=== PATIENT | female | born 1985 | race Caucasian/White ===

== ENCOUNTER 2019-10-14 10:33 | Emergency (ER) | payer OTHER, SELFPAY ==
[2019-10-14 10:45] VITALS: BP 124/80; PULSE 94; RESP 20; TEMP 36.7; O2SAT 98
--- NOTE | 2019-10-14 11:27 | ED.GENADULT ---
HPI - General Adult General Chief complaint: Upper Respiratory Infection Stated complaint: flu swab Time Seen by Provider: 10/14/19 11:21 Source: patient and RN notes reviewed Mode of arrival: ambulatory Limitations: no limitations History of Present Illness HPI narrative: Patient presents today with a fever up to 101.4, mild cough, body aches, and headache since yesterday. Reports all 3 of her children have had influenza in the past couple of weeks. She has been taking DayQuil, Mucinex, and Tylenol with some relief. MD complaint: Fever Related Data Home Medications Medication Instructions Recorded Confirmed divalproex [Depakote] 2,000 mg PO DAILY 10/14/19 10/14/19 escitalopram oxalate [Lexapro] 10 mg PO DAILY 10/14/19 10/14/19 etonogestrel [Nexplanon] 1 implant SUBDERMAL ONCE 10/14/19 10/14/19 lorazepam 1 mg PO DAILY 10/14/19 10/14/19 Allergies Allergy/AdvReac Type Severity Reaction Status Date / Time Sulfa (Sulfonamide Allergy Mild HIVES Verified 10/14/19 11:12 Antibiotics) Review of Systems Review of Systems: Narrative: CONSTITUTIONAL: Denies chills, or sweats.+Body aches, fever EYES: Denies visual changes, redness, or discharge. ENT: Denies rhinorrhea, congestion, sore throat, or otalgia. CARDIOVASCULAR: Denies chest pain, palpitations, or edema. RESPIRATORY: Denies dyspnea.+Cough GASTROINTESTINAL: Denies abdominal pain, nausea, vomiting, or diarrhea. GENITOURINARY: Denies dysuria or hematuria. SKIN: Denies rash, itching, or wounds. MUSCULOSKELETAL: Denies back pain, joint pain, or myalgia. NEUROLOGIC: Denies numbness, tingling, or weakness.+Headache PSYCH: Denies depression or anxiety. PMFSH Past Medical History Medical History (Updated 10/14/19 @ 11:31 by Aracelis Jane, [employer], ) ADHD Anxiety Borderline personality disorder Depression Comments At time of signature, I have reviewed and agree with nursing past medical, surgical, social and family history unless otherwise noted. Please see nursing chart for further information. There is no relevant family history pertinent to the presenting complaint Exam Narrative: Exam Narrative: GENERAL: Mildly ill-appearing, well-nourished, and in no acute distress. HEAD: Normocephalic, atraumatic. EYES: EOMI. No redness or drainage. Conjunctivae normal. ENT: Mucous membranes pink and moist. Nares clear. No rhinorrhea. TMs normal bilaterally. Throat normal. Uvula midline. NECK: Normal AROM. Supple. No lymphadenopathy. CHEST: No respiratory distress. Clear to auscultation. HEART: Regular rate and rhythm. No murmur appreciated. Normal peripheral pulses. EXTREMITIES: Normal range of motion. No edema. SKIN: Warm, dry, no rash. NEURO: No focal deficits. Alert and oriented x3. Gait steady. PSYCH: Normal affect. No signs of depression or anxiety. Course Vital Signs Vital signs: Vital Signs Temperature 98.0 F 10/14/19 10:45 Pulse Rate 94 10/14/19 10:45 Respiratory Rate 10/14/19 10:45 Blood Pressure 124/80 10/14/19 10:45 Pulse Oximetry 98 10/14/19 10:45 Temperature 98.0 F 10/14/19 10:45 Pulse Rate 94 10/14/19 10:45 Respiratory Rate 10/14/19 10:45 Blood Pressure 124/80 10/14/19 10:45 Pulse Oximetry 98 10/14/19 10:45 Reviewed. Pt has been instructed to follow up with her PCP regarding her elevated blood pressure today. Medical Decision Making Differential Diagnosis Differential Diagnosis: Influenza, URI, viral syndrome Vital Signs Vital Signs: Vital Signs Temperature 98.0 F 10/14/19 10:45 Pulse Rate 94 10/14/19 10:45 Respiratory Rate 10/14/19 10:45 Blood Pressure 124/80 10/14/19 10:45 Pulse Oximetry 98 10/14/19 10:45 Temperature 98.0 F 10/14/19 10:45 Pulse Rate 94 10/14/19 10:45 Respiratory Rate 10/14/19 10:45 Blood Pressure 124/80 10/14/19 10:45 Pulse Oximetry 98 10/14/19 10:45 Lab Data Lab results reviewed: Yes I reviewed the patient's lab resul
== END 2019-10-14 11:32 | disposition home or self-care (01) ==
PROVIDERS: Emergency Provider Nurse Practitioner; PCP Physician Assistant
DX: B34.9 Viral infection, unspecified (principal); F41.9 Anxiety disorder, unspecified; F32.9 Major depressive disorder, single episode, unspecified
CPT/HCPCS: 87804; 99212; G0463

== ENCOUNTER 2021-03-27 16:08 | Emergency (ER) | payer OTHER, SELFPAY ==
[2021-03-27 16:18] VITALS: BP 144/83; PULSE 98; RESP 16; TEMP 36.4; O2SAT 99
--- NOTE | 2021-03-27 16:19 | ED.LOWEXIN ---
HPI - Extremity Injury (Lower) General Chief Complaint: Extremity Injury, Lower Stated Complaint: Pain and can't walk on left Leg Time Seen by Provider: 03/27/21 16:30 Source: patient and RN notes reviewed Mode of arrival: ambulatory Limitations: no limitations History of Present Illness HPI Narrative: 35-year-old female presents with concern for left calf pain that started suddenly after she was pushing her car onto a sloane to be towed. She denies any direct trauma or blow to the leg. She denies a fall. She reports some pain at rest, pain with foot flexion and weightbearing. She denies redness, swelling, open skin. Denies intervention MD complaint: leg injury Related Data Home Medications Medication Instructions Recorded Confirmed etonogestrel [Nexplanon] 1 implant SUBDERMAL ONCE 10/14/19 10/14/19 lorazepam 0.5 mg PO DAILY 10/14/19 10/14/19 cariprazine [Vraylar] 1.5 mg PO DAILY 03/27/21 03/27/21 oxcarbazepine 300 mg PO BID 03/27/21 03/27/21 venlafaxine 75 mg PO DAILY 03/27/21 03/27/21 Allergies Allergy/AdvReac Type Severity Reaction Status Date / Time Sulfa (Sulfonamide Allergy Mild HIVES Verified 03/27/21 16:28 Antibiotics) Review of Systems Review of Systems: CONSTITUTIONAL: Denies malaise, chills, sweats, or fever. CARDIOVASCULAR: Denies chest pain, palpitations, or edema. RESPIRATORY: Denies cough or dyspnea. SKIN: Denies abrasions, lacerations MUSCULOSKELETAL: Reports left calf pain with weightbearing and flexion NEUROLOGIC: Denies numbness, weakness All systems reviewed & are unremarkable except as noted in HPI and below PMFSH Past Medical History Medical History (Updated 03/27/21 @ 16:41 by Abiola Meraz NP) ADHD Anxiety Borderline personality disorder Depression Comments At time of signature, agree with nursing past medical, surgical, social and family history. There is no relevant family history pertinent to the presenting complaint Exam Narrative: GENERAL: Well-appearing, well-nourished, and in no acute distress. HEAD: Normocephalic, atraumatic. EYES: PERRLA, conjunctivae clear NECK: Supple. CHEST: Speaks in full sentences. No respiratory distress. HEART: Regular rate and rhythm. Normal and equal peripheral pulses. EXTREMITIES: Left lower leg has normal strength and sensation, normal range of motion. No edema erythema, or ecchymosis. Normal sensation with sensitivity to light touch and pain. Mild tenderness at the lateral posterior calf tenderness. No open wounds, no skin tenting, no devitalized tissue or atrophy, no trophic changes, no obvious deformity, alignment normal, nearby joints and structures intact. Distal pulses palpable and equal bilaterally, skin warm, dry, pink. Capillary refill less than 3 seconds. SKIN: Warm, dry, no rash. NEURO: Alert and oriented x3. PSYCH: Normal mood and affect Course Course Emergency Course: Patient is aware of diagnosis, understands and agrees to treatment plan. Anticipatory guidance given. Patient agrees to follow-up as directed and is aware of reasons to seek care at the emergency department. Portions of this record may have been created with voice recognition software Vital Signs Vital signs: Vital Signs Temperature 97.6 F 03/27/21 16:18 Pulse Rate 98 03/27/21 16:18 Respiratory Rate 16 03/27/21 16:18 Blood Pressure 144/83 H 03/27/21 16:18 Pulse Oximetry 99 03/27/21 16:18 Temperature 97.6 F 03/27/21 16:18 Pulse Rate 98 03/27/21 16:18 Respiratory Rate 16 03/27/21 16:18 Blood Pressure 144/83 H 03/27/21 16:18 Pulse Oximetry 99 03/27/21 16:18 Reviewed. MDM - Extremity Injury (Lower) MDM Narrative Medical decision making narrative: Patients injury and pain is consistent with musculoskeletal etiology. No signs of neurological or vascular compromise on exam. Compartments and tissues are soft without signs of compartment syndrome. Pain is felt appropriate for further evaluation on an outpatient basis. Cr
== END 2021-03-27 16:43 | disposition home or self-care (01) ==
PROVIDERS: Emergency Provider Nurse Practitioner; PCP Physician Assistant
DX: S86.112A Strain of other muscle(s) and tendon(s) of posterior muscle group at lower leg level, left leg, initial encounter (principal); X50.0XXA Overexertion from strenuous movement or load, initial encounter; F41.9 Anxiety disorder, unspecified; F32.9 Major depressive disorder, single episode, unspecified
CPT/HCPCS: 99212; G0463

== ENCOUNTER → 2021-03-27 20:57 | Emergency (ER) | payer OTHER, SELFPAY ==
[2021-03-27 21:09] VITALS: BP 118/81; PULSE 89; RESP 17; TEMP 36.8; O2SAT 100
--- NOTE | 2021-03-27 21:17 | PC.NURSE ---
Patient informed that no walking boots are available here and she stated she will leave. Patient left ED at 2114, stating she will just go home.
== END | disposition left against medical advice (07) ==
PROVIDERS: PCP Physician Assistant
DX: M79.662 Pain in left lower leg (principal)
CPT/HCPCS: 99199

== ENCOUNTER 2021-07-05 16:19 | Emergency (ER) | payer OTHER, SELFPAY ==
--- NOTE | ~2021-07-05 | XR_ITS ---
EXAMINATION: XR soft tissue neck EXAM DATE: 07/05/2021 17:52 INDICATION: Throat pressure, hard to swallow, raspy voice, n/v x 1 week. TECHNIQUE: Soft tissue neck frontal, lateral projections. There is no prior study for comparison. FINDINGS: On the frontal projection, at the glottis, vocal cords airway is narrowed which could be ph asic. Some edema of the vocal cords, glottis not excludable. Epiglottis and aryepiglottic folds are n ormal. There are no soft tissue abnormalities identified. Vertebral body and disc heights are well- maintained. The vertebral bodies are aligned. IMPRESSION: Glottic narrowing on frontal image which can be phasic, or indicative of vocal cord edema. Normal epi glottis. Reviewed, dictated and finalized at location A. ONOMY INSTRUCTOR IMPRESSION: Glottic narrowing on frontal image which can be phasic, or indicative of vocal cord edema. Normal epiglottis.
--- NOTE | ~2021-07-05 | CT_ITS ---
EXAMINATION: CT soft tissue neck w con EXAM DATE: 07/05/2021 19:12 INDICATION: neck pressure, vocal cord narrowing . TECHNIQUE: Spiral CT of the neck was performed following intravenous injection of 75 mL Omnipaque 350 . Axial, coronal and sagittal images were reviewed. The dose-length product (DLP) for this examinat ion was 588.37 mGy-cm. The exposure was tailored according to patient size (auto mA exposure control ), and iterative reconstruction (ASIR) was used as additional dose reduction technique. There is no prior study for comparison. FINDINGS: The thyroid gland is unremarkable. The submandibular and parotid glands are symmetric. There is a right IJ lymph node measuring 1.0 x 1.1 cm, mildly enlarged, likely reactive. The superio r mediastinum is unremarkable. The airway is unremarkable. Parapharyngeal and pre-glottic fat rishabh lance are preserved. The opacified vasculature is patent. The orbits are unremarkable. Mild right maxillary sinus mucoperiosteal thickening. Lung apices are clear. There is cervical spondylosis. IMPRESSION: 1. Normal-appearing airway, fat planes. 2. Mildly enlarged right level 2 lymph node, reactive. 3. Mild right maxillary sinus mucoperiosteal thickening. Reviewed, dictated and finalized at location A. [employer]
[2021-07-05 16:58] VITALS: BP 104/74; PULSE 100; RESP 16; TEMP 36.3; O2SAT 100
--- NOTE | 2021-07-05 17:26 | ED.URI ---
HPI - URI/Sore Throat General Chief Complaint: Upper Respiratory Infection Stated Complaint: throat pressure Time Seen by Provider: 07/05/21 17:24 Source: patient Mode of arrival: ambulatory Limitations: no limitations History of Present Illness HPI Narrative: Patient is a 35-year-old female presenting for evaluation of throat pressure. Patient states that she has had intermittently sore throat, congestion, rhinorrhea. Patient had a negative Covid test ordered by her primary care physician that resulted today. She denies any significant fever or chills. No nausea or vomiting. She reports vocal hoarseness. She denies any ear pain or discharge. No neck pain, cough or shortness of breath. Patient states that she has a daughter currently hospitalized at [facility], was concerned that initially her symptoms of sort thoroughness were secondary to anxiety. Symptoms have persisted, today the patient's primary care provider urged her to come to the emergency department for evaluation. No difficulty with neck movement. She does report a swollen lymph node on the left side of her neck which has been there since she was age 17. She denies history of cancer. Patient does report intermittent dizziness with standing over the past week as well. No current dizziness in room. No focal weakness or numbness. No recent fall, injury or syncopal events. Patient has been ambulatory without difficulty. No noticeable changes in her gait. Related Data Home Medications Medication Instructions Recorded Confirmed etonogestrel [Nexplanon] 1 implant SUBDERMAL ONCE 10/14/19 10/14/19 lorazepam 0.5 mg PO DAILY 10/14/19 10/14/19 cariprazine [Vraylar] 1.5 mg PO DAILY 03/27/21 03/27/21 oxcarbazepine 300 mg PO BID 03/27/21 03/27/21 venlafaxine 75 mg PO DAILY 03/27/21 03/27/21 Allergies Allergy/AdvReac Type Severity Reaction Status Date / Time Sulfa (Sulfonamide Allergy Mild HIVES Verified 07/05/21 17:21 Antibiotics) Review of Systems Review of Systems: CONSTITUTIONAL: Denies current fever, chills, or sweats. EYES: Denies visual changes, redness, or discharge. ENT: Reports rhinorrhea, congestion, history of sore throat, denies otalgia CARDIOVASCULAR: Denies chest pain, palpitations, or edema. RESPIRATORY: Denies cough or dyspnea. GASTROINTESTINAL: Denies abdominal pain, nausea, vomiting, or diarrhea. GENITOURINARY: Denies dysuria or hematuria. SKIN: Denies rash or itching. MUSCULOSKELETAL: Denies back pain, joint pain, or myalgia. NEUROLOGIC: Denies headache, numbness, or weakness. Reports intermittent dizziness. Denies current dizziness. No syncopal events. No changes in gait. [facility] Past Medical History Medical History ADHD Anxiety Borderline personality disorder Depression Social History Social History (Updated 07/05/21 @ 17:45 by Jana Waddell MD) Smoking status: Current every day smoker Tobacco type: cigarettes Substance use: current Substance use type: marijuana Living arrangements: with family Gender identity (if verbalized by the patient): Female Exam Narrative: GENERAL: Awake, alert, conversant HEAD: Normocephalic, atraumatic. EYES: PERRLA and EOMI. ENT: Nares clear, no rhinorrhea or epistaxis. Mucous membranes moist. No lymphadenopathy. Uvula is midline. No trismus. Mild tonsillar erythema, edema bilaterally. No exudate. NECK: Supple. CHEST: No respiratory distress, breathing even and non labored, no wheezing, no crackles HEART: Regular rate, sinus rhythm ABDOMEN:Non distended, non tender EXTREMITIES: Normal range of motion. No edema. SKIN: Warm, dry, no rash. NEURO:No focal deficits. Alert and oriented x3 Course Vital Signs Vital signs: Vital Signs Temperature 36.3 C L 07/05/21 16:58 Pulse Rate 100 07/05/21 16:58 Respiratory Rate 16 07/05/21 16:58 Blood Pressure 104/74 07/05/21 16:58 Pulse Oximetry 100 07/05/21
[2021-07-05 18:11] LABS: Basophils Percent Auto 0.3 % (0.2-1.2); Eosinophils Absolute Auto 0.2 K/mm3 (0-0.3); Eosinophils Percent Auto 1.8 % (0-4.4); Hematocrit 41.9 % (37.0-47.0); Hemoglobin 13.8 g/dL (12.0-15.0); Immature Granulocyte Absolute 0.07 K/mm3 (0.00-0.031); Immature Granulocyte Percent A 0.5 % (0-0.5); Lymphocytes Absolute Auto 2.86 K/mm3 (0.9-3.2); Lymphocytes Percent Auto 21.3 % (18.3-44.2); Mean Corpuscular HGB Conc 32.9 g/dl (32-36); Mean Corpuscular Hemoglobin 30.3 pg (26-34); Mean Corpuscular Volume 92.1 fl (80-100); Monocytes Absolute Auto 0.8 K/mm3 (0.1-0.6); Monocytes Percent Auto 5.9 % (2.6-8.5); Neutrophils Absolute Auto 9.4 K/mm3 (1.3-6.7); Neutrophils Percent Auto 70.2 % (45.5-73.1); Platelet Count Result 333 k/mm3 (150-375); Red Blood Count 4.55 M/mm3 (4.2-5.4); Red Cell Distribution Width 13.4 % (11.5-14.5); White Blood Count 13.4 K/mm3 (4.5-10.0)
[2021-07-05 18:21] LABS: Anion Gap 7 mmol/L (8-16); Blood Urea Nitrogen 20 mg/dL (7-17); Carbon Dioxide 27 mmol/L (22-30); Chloride 105 mmol/L (98-107); Estimated CRCL calculation 133 ml/min; Estimated Glomerular Filt Rate > 60; Glucose 107 mg/dL (65-110); Potassium 4.1 mmol/L (3.4-5.0); Sodium 139 mmol/L (137-145)
[2021-07-05] MEDS: KETOROLAC (*BKC) 60 MG/2 ML VIAL 30 MG IM (18:21)
== END 2021-07-05 19:42 | disposition home or self-care (01) ==
PROVIDERS: Emergency Provider Emergency Medicine; PCP Physician Assistant
DX: B34.9 Viral infection, unspecified (principal); F17.200 Nicotine dependence, unspecified, uncomplicated
CPT/HCPCS: 36415; 70360; 70491; 80048; 85025; 87081; 87880; 96372; 99284; J1100; J1885; Q9967

== ENCOUNTER 2021-07-28 11:10 | Emergency (ER) | payer OTHER, SELFPAY ==
--- NOTE | ~2021-07-28 | XR_ITS ---
EXAMINATION: XR wrist RT min 3V DATE: 07/28/2021 12:55 INDICATION: Right wrist pain post fall down stairs TECHNIQUE: Posteroanterior, ulnar deviation, oblique, and lateral views of the right wrist were obtai lorna. COMPARISON: none FINDINGS: Alignment is normal. No fracture. Joint spaces are normal. Soft tissues are unremarkable. IMPRESSION: 1. Negative right wrist radiographs. Reviewed, dictated and finalized at location A. T LAYER
--- NOTE | ~2021-07-28 | XR_ITS ---
EXAMINATION: XR lumbar spine 2-3V EXAM DATE: 07/28/2021 12:54 INDICATION: Fall Down Stairs, Right Low Back Pain . Initial encounter. TECHNIQUE: Lumber spine frontal, lateral, lateral L5-S1 projections for interpretation. There is no prior study for comparison. FINDINGS: There are no acute fractures identified. The vertebral bodies are aligned in the AP dimens ion. Vertebral body and disc heights are well-maintained. No spondylolysis. Facet joints demonstrate mild arthropathy. Sacrum, sacroiliac joints, sacral arcuate lines are intact. Paraspinal soft tissue is unremarkable. IMPRESSION: No acute lumbar fracture. Mild arthropathy. Reviewed, dictated and finalized at location A. NCIAL REPRESENTATIVE
--- NOTE | ~2021-07-28 | XR_ITS ---
EXAMINATION: XR hip RT 2V w AP pelvis EXAM DATE: 07/28/2021 12:53 INDICATION: Initial encounter following injury, with pain of the right hip. TECHNIQUE: Right hip frontal, 'frog leg' projections for interpretation. Frontal projection pelvis. There is no prior study for comparison. FINDINGS: Hip joints are symmetric, space is maintained. There are no acute pelvic or hip fractures o r dislocations identified. There is no subcutaneous gas. The soft tissue is unremarkable. There a re no radiopaque foreign bodies. IMPRESSION: 1. Pelvis, right hip exam without acute osseous findings. Reviewed, dictated and finalized at location A. AROUND PATTERNMAKER
--- NOTE | ~2021-07-28 | XR_ITS ---
EXAMINATION: XR_[id number]_CR EXAM DATE: 07/28/2021 12:55 INDICATION: Initial encounter following injury, with pain of the right ribs. Fall. TECHNIQUE: Frontal projection of the upper right ribs, frontal projection of the lower right ribs, ob lique projection of the right ribs, frontal chest x-ray(s) for interpretation. There is no prior sunshine dy for comparison. FINDINGS: There are no displaced acute right rib fractures identified. There is no soft tissue abno rmality seen. Cardiomediastinal silhouette is normal. No confluent consolidation, pneumothorax or ple ural effusion suspected. IMPRESSION: No displaced right rib fractures. Reviewed, dictated and finalized at location A. NG MACHINE MECHANIC
[2021-07-28 11:12] VITALS: BP 151/85; PULSE 113; RESP 20; TEMP 36.6; O2SAT 100
--- NOTE | 2021-07-28 12:12 | ED.FALL ---
HPI - Fall General Chief Complaint: Fall Stated Complaint: Fell down 11 stairs,r wrist,low back,upper R back Time Seen by Provider: 07/28/21 11:41 Source: patient and RN notes reviewed Mode of arrival: ambulatory Limitations: no limitations History of Present Illness HPI Narrative: This is a 35 year old female who presents for evaluation after fall down stair. This morning she accidentally slipped down 11 wooden steps on her back. She denies hitting her head or LOC. She called her PCP who recommended for her to come to ER for assessment. She complains of right upper back abrasion, right lower back abrasion and right wrist abrasion. She denies shortness of breath, nausea or vomiting. She is able to ambulated. Unknown last tetanus immunization. Related Data Home Medications Medication Instructions Recorded Confirmed etonogestrel [Nexplanon] 1 implant SUBDERMAL ONCE 10/14/19 10/14/19 lorazepam 0.5 mg PO DAILY 10/14/19 10/14/19 Allergies Allergy/AdvReac Type Severity Reaction Status Date / Time Sulfa (Sulfonamide Allergy Mild HIVES Verified 07/05/21 17:21 Antibiotics) Review of Systems Review of Systems: All systems reviewed & are unremarkable except as noted in HPI and below PMFSH Past Medical History Medical History ADHD Anxiety Borderline personality disorder Depression Social History Social History Smoking status: Current every day smoker Tobacco type: cigarettes Substance use: current Substance use type: marijuana Gender identity (if verbalized by the patient): Female Exam Const: General: no acute distress and alert Orientation/consciousness: patient oriented x3 HENMT: Head: normocephalic and atraumatic Face and sinus: face symmetric Eyes: Pupils: Equal, round and reactive pupils present EOM: EOMs intact bilaterally Neck: Neck: normal visual inspection Chest: Chest palpation & inspection: normal inspection of the chest and no tenderness Resp: Effort & Inspection: normal respiratory effort and no retractions Auscultation: clear to auscultation bilaterally Cardio: Rate: regular rate Rhythm: regular rhythm Heart sounds: no murmurs GI: GI Palp: Yes Soft to palpation, No Tenderness to palpation present (GI) and No Guarding due to palpation present (GI) Auscultation: normal bowel sounds Back/Spine/Pelvis: Cervical Spine: cervical ROM normal and No Cervical spine tenderness Skin: Other: abrasion to right upper back, right lower back. Small abrasion to right wrist. Neuro: General: patient oriented x3, moves all extremities and CN's II-XI intact bilaterally Gait exam (Neuro): Normal gait present Extrem: Other: FROM, no swelling or deformity, see skin Psych: Mental Status: mental status grossly normal Affect: normal affect Course Reevaluation(s) Reevaluation #1: I Discussed xray results with patient. No acute fractures found. She has no additional concerns or questions. Date: 07/28/21 Time: 13:11 Vital Signs Vital signs: Vital Signs Temperature 97.9 F 07/28/21 11:12 Pulse Rate 113 H 07/28/21 11:12 Respiratory Rate 20 07/28/21 11:12 Blood Pressure 151/85 H 07/28/21 11:12 Pulse Oximetry 100 07/28/21 11:12 Temperature 97.9 F 07/28/21 11:12 Pulse Rate 76 07/28/21 13:44 Respiratory Rate 18 07/28/21 13:44 Blood Pressure 132/76 07/28/21 13:44 Pulse Oximetry 99 07/28/21 13:44 MDM - Fall Imaging Data Radiologist's impression: ITS Impressions Wrist X-Ray 07/28/21 12:55 IMPRESSION: 1. Negative right wrist radiographs. Hip/Pelvis X-Ray 07/28/21 12:57 IMPRESSION: 1. Pelvis, right hip exam without acute osseous findings. Lumbar Spine X-Ray 07/28/21 12:59 IMPRESSION: No acute lumbar fracture. Mild arthropathy. Ribs w/Chest X-Ray 07/28/21 13:01 IMPRESSION: No displaced right
[2021-07-28] MEDS: IBUPROFEN 400 MG TABLET 800 MG PO (12:31)
[2021-07-28] MEDS: TETANUS,DIPHTHERIA,AC PERTUSSIS ADULT (0.5 ML) BOOSTRIX IM (12:32)
[2021-07-28 13:44] VITALS: BP 132/76; PULSE 76; RESP 18; O2SAT 99
== END 2021-07-28 13:46 | disposition home or self-care (01) ==
PROVIDERS: Emergency Provider General Practice; PCP Physician Assistant
DX: R07.81 Pleurodynia (principal); S60.811A Abrasion of right wrist, initial encounter; W10.8XXA Fall (on) (from) other stairs and steps, initial encounter; F17.210 Nicotine dependence, cigarettes, uncomplicated; F90.9 Attention-deficit hyperactivity disorder, unspecified type; F41.9 Anxiety disorder, unspecified; F32.9 Major depressive disorder, single episode, unspecified; Z23 Encounter for immunization
CPT/HCPCS: 71101; 72100; 73110; 73502; 90471; 90715; 99284; A9270

== ENCOUNTER 2021-09-04 11:16 | Emergency (ER) | payer OTHER, SELFPAY ==
[2021-09-04 11:48] VITALS: BP 125/85; PULSE 111; RESP 17; TEMP 37.2; O2SAT 99
[2021-09-04 14:13] VITALS: TEMP 38.2
--- NOTE | 2021-09-04 14:30 | ED.GENADULT ---
HPI - General Adult General Chief complaint: Unspecified Stated complaint: fever Time Seen by Provider: 09/04/21 14:22 Source: patient Mode of arrival: ambulatory Limitations: no limitations History of Present Illness HPI narrative: Patient is a 35-year-old female complaining of cough, congestion, body aches, fever and headache started today. Patient denies any chest pain, shortness of breath, abdominal pain, nausea, vomiting or diarrhea. Patient states that she has not been vaccinated from [employer]. Patient states that she has had positive sick contact. Related Data Home Medications Medication Instructions Recorded Confirmed etonogestrel [Nexplanon] 1 implant SUBDERMAL ONCE 10/14/19 10/14/19 lorazepam 0.5 mg PO DAILY 10/14/19 10/14/19 Allergies Allergy/AdvReac Type Severity Reaction Status Date / Time Sulfa (Sulfonamide Allergy Mild HIVES Verified 09/04/21 14:14 Antibiotics) Review of Systems Review of Systems: All systems reviewed & are unremarkable except as noted in HPI and below Constitutional: Constitutional: Denies excessive sweating, Denies fatigue, Denies headache(s), Denies lethargy, Denies malaise, Denies weakness and Denies weight loss Eyes: Eyes: Denies blurry vision, Denies change in vision and Denies loss of vision ENT: Denies dizziness, Denies ear discharge, Denies headache(s), Denies lip swelling, Denies epistaxis, Denies nasal congestion, Denies neck pain, Denies throat swelling and Denies tongue swelling Cardiovascular: Cardiovascular: Denies chest pain, Denies chest pain at rest, Denies chest pain with activity, Denies diaphoresis, Denies rapid heart rate, Denies edema, Denies irregular heart rhythm, Denies lightheadedness, Denies palpitations, Denies dyspnea and Denies dyspnea on exertion Respiratory: Respiratory: Denies chest congestion, Denies hemoptysis, Denies dyspnea and Denies dyspnea on exertion Gastrointestinal: Gastrointestinal: Denies abdominal pain, Denies melena, Denies hematochezia, Denies diarrhea, Denies nausea, Denies vomiting and Denies hematemesis Musculoskeletal: Musculoskeletal: Denies abnormal gait, Denies deformity, Denies joint swelling, Denies limited range of motion, Denies neck pain and Denies numbness Neurologic: Denies Abnormal speech present, Denies abnormal gait, Denies confusion, Denies dizziness, Denies headache(s), Denies focal weakness, Denies loss of vision, Denies numbness, Denies Other visual disturbances, Denies Sensory deficit (Neuro) and Denies weakness Psychiatric: Psychiatric: Denies confusion, Denies depression, Denies auditory hallucinations, Denies homicidal ideation and Denies suicidal ideation Endocrine: Endocrine: Denies cold intolerance, Denies excessive sweating, Denies fatigue, Denies heat intolerance and Denies palpitations Hematologic/Lymphatic: Hematologic/Lymphatic: Denies easy bleeding and Denies easy bruising Allergic/Immunologic: Allergic/Immunologic: Denies lip swelling, Denies throat swelling and Denies tongue swelling PMFSH Past Medical History Medical History ADHD Anxiety Borderline personality disorder Depression Social History Social History Smoking status: Current every day smoker Tobacco type: cigarettes Substance use: current Substance use type: marijuana Gender identity (if verbalized by the patient): Female Exam Const: General: cooperative, healthy appearing, comfortable, no acute distress, well developed, alert and awake; No confusion Orientation/consciousness: oriented to person, oriented to place, oriented to time, patient oriented x3 and No confusion Limitations: no limitations HENMT: Head: normal to inspection, normocephalic and atraumatic Ears: hearing grossly normal bilaterally, TM normal on the right and TM normal on the left General nose exam: Normal external nose present, Normal nares pr
[2021-09-04] MEDS: ACETAMINOPHEN 325 MG TABLET 650 MG PO (14:53)
[2021-09-04 15:40] LABS: SARS-CoV-2 RNA PCR Positive
[2021-09-04 16:51] VITALS: PULSE 94; RESP 16; TEMP 37.1; O2SAT 100
== END 2021-09-04 16:54 | disposition home or self-care (01) ==
PROVIDERS: Emergency Provider Emergency Medicine; PCP Physician Assistant
DX: U07.1 COVID-19 (principal); F90.9 Attention-deficit hyperactivity disorder, unspecified type; F41.9 Anxiety disorder, unspecified; F32.A Depression, unspecified; F60.3 Borderline personality disorder; F17.210 Nicotine dependence, cigarettes, uncomplicated
CPT/HCPCS: 87804; 99283; A9270; C9803; U0003; U0005

== ENCOUNTER 2022-02-03 03:30 | Emergency (ER) | payer OTHER, SELFPAY ==
--- NOTE | ~2022-02-03 | XR_ITS ---
EXAMINATION: XR chest 2V DATE: 02/03/2022 03:49 INDICATION: Swallowed foreign body. TECHNIQUE: Frontal and lateral views of the chest were obtained. COMPARISON: None. FINDINGS: The chest demonstrates clear lungs without pneumonia, pleural effusion, or pneumothorax. Th e heart size is normal. There is a 2.6 cm radiopaque foreign body overlying the stomach. IMPRESSION: 1. 2.6 cm radiopaque foreign body overlying the stomach that may be a dental bridge. Reviewed, dictated and finalized at location [facility]. IMPRESSION: 1. 2.6 cm radiopaque foreign body overlying the stomach that may be a dental br idge.
[2022-02-03 03:33] VITALS: BP 148/89; PULSE 111; RESP 18; TEMP 36.8; O2SAT 97
--- NOTE | 2022-02-03 03:41 | ED.GENADULT ---
HPI - General Adult General Chief complaint: Skin/Abscess/Foreign Body Stated complaint: swallowed dental branch Time Seen by Provider: 02/03/22 03:36 History of Present Illness HPI narrative: Patient states that she was eating a snack when she felt part of her tooth bridge coming off, she then excellently swallowed it. She states that the back of her throat seems kind of scratchy, and she has some pain in the middle of her chest, but otherwise no trouble with breathing or swallowing at this time. No other complaints. Related Data Home Medications Medication Instructions Recorded Confirmed etonogestrel 68 mg subdermal 1 implant subdermal ONCE 10/14/19 10/14/19 implant (Nexplanon) lorazepam 1 mg tablet 0.5 mg PO DAILY 10/14/19 10/14/19 lamotrigine 25 mg tablet 50 tablet PO DAILY 02/03/22 Allergies Allergy/AdvReac Type Severity Reaction Status Date / Time Sulfa (Sulfonamide Allergy Mild HIVES Verified 02/03/22 03:38 Antibiotics) Review of Systems Review of Systems: HEENT: sore throat C/V: Some chest discomfort RESP: No cough GI: No abdominal pain PMFSH Past Medical History Medical History ADHD Anxiety Borderline personality disorder Depression Social History Social History Smoking status: Current every day smoker Tobacco type: cigarettes Substance use: current Substance use type: marijuana Gender identity (if verbalized by the patient): Female Exam Narrative: EXAMINATION OF ORGAN SYSTEMS/BODY AREAS: Constitutional: Vital signs per nursing GENERAL:[No acute distress, non-toxic appearing.] HEAD: Normal with no signs of head trauma. EYES: EOMI, conjunctiva normal ENT: Normal voice, no signs of oropharyngeal trauma LUNGS: Nonlabored breathing. Clear to auscultation bilaterally HEART: [Regular rate and rhythm] ABD: [Soft], [nontender to palpation] SKIN: [No rashes or lesions.] NEURO: [Alert and oriented x 3. No gross focal sensory or strength deficits.] PSYCH: Normal affect Course Vital Signs Vital signs: Vital Signs Temperature 98.2 F 02/03/22 03:33 Pulse Rate 111 H 02/03/22 03:33 Respiratory Rate 18 02/03/22 03:33 Blood Pressure 148/89 H 02/03/22 03:33 Pulse Oximetry 97 02/03/22 03:33 Oxygen Delivery Room Air 02/03/22 03:33 Temperature 98.2 F 02/03/22 03:33 Pulse Rate 111 H 02/03/22 03:33 Respiratory Rate 18 02/03/22 03:33 Blood Pressure 148/89 H 02/03/22 03:33 Pulse Oximetry 97 02/03/22 03:33 Oxygen Delivery Room Air 02/03/22 03:33 Medical Decision Making MDM Narrative Medical decision making narrative: 36-year-old female presenting after accidentally swallowing a dental bridge, she denies any symptoms other than some sore throat and chest discomfort, vital signs stable, she is well-appearing with clear lungs and nontender abdomen, no crepitus on exam. Chest x-ray obtained which shows the foreign body in her stomach; no signs of free air. Patient is reassured, given strict return precautions for signs of obstruction or perforation, and asked to follow up with her doctor for possible further imaging or retrieval if she does not see it pass in her stool in the next week. Patient agreeable with plan. Vital Signs Vital Signs: Vital Signs Temperature 98.2 F 02/03/22 03:33 Pulse Rate 111 H 02/03/22 03:33 Respiratory Rate 18 02/03/22 03:33 Blood Pressure 148/89 H 02/03/22 03:33 Pulse Oximetry 97 02/03/22 03:33 Oxygen Delivery Room Air 02/03/22 03:33 Temperature 98.2 F 02/03/22 03:33 Pulse Rate 111 H 02/03/22 03:33 Respiratory Rate 18 02/03/22 03:33 Blood Pressure 148/89 H 02/03/22 03:33 Pulse Oximetry 97 02/03/22 03:33 Oxygen Delivery Room Air 02/03/22 03:33 Discharge Plan Discharge Clinical Impression: Ingestion of foreign body Patient Disposition: Home, Self-Care Condition: St
== END 2022-02-03 04:00 | disposition home or self-care (01) ==
PROVIDERS: Emergency Provider Emergency Medicine; PCP Physician Assistant
DX: T18.0XXA Foreign body in mouth, initial encounter (principal); F90.9 Attention-deficit hyperactivity disorder, unspecified type; F41.9 Anxiety disorder, unspecified; F32.9 Major depressive disorder, single episode, unspecified; F17.200 Nicotine dependence, unspecified, uncomplicated; X58.XXXA Exposure to other specified factors, initial encounter
CPT/HCPCS: 71046; 99283

== ENCOUNTER 2022-02-11 15:50 | Outpatient (CLI) | payer OTHER, SELFPAY ==
--- NOTE | ~2022-02-11 | XR_ITS ---
XR chest 2V DATE: 02/11/2022 16:15 INDICATION: Swallowed a foreign body one week ago TECHNIQUE: PA and lateral views of chest COMPARISON: 02/03/2022 PA and lateral chest FINDINGS: Normal heart size. No hilar or mediastinal enlargement. No pulmonary infiltrate or consolid ation, pleural effusion or pulmonary vascular congestion or pneumothorax is detected. Included skeletal structures are unremarkable. IMPRESSION: Negative Reviewed, dictated and finalized at location [facility]. IMPRESSION: Negative
--- NOTE | ~2022-02-11 | XR_ITS ---
XR abdomen/kub 1V DATE: 02/11/2022 16:15 INDICATION: Swallowed radiopaque foreign body one week ago TECHNIQUE: AP supine views of abdomen and pelvis COMPARISON: 02/03/2022 2 view chest FINDINGS: Previously reported radiopaque foreign body overlying the stomach on 02/03/10,022 currently o verlies the right lower quadrant, likely within the proximal ascending colon. No bowel destruction. The psoas shadows are intact. No visceromegaly or significant abnormal calcific ation. The lower lung zones are clear. Normal heart size. Included skeletal structures are unremarkable. IMPRESSION: Radiopaque foreign body in proximal ascending colon Reviewed, dictated and finalized at [facility]. Reviewed, dictated and finalized at location [facility].
== END 2022-02-11 15:51 | disposition home or self-care (01) ==
LOC: ANHIMG 15:55
PROVIDERS: PCP Physician Assistant; Visit Provider Physician Assistant
DX: T18.2XXD Foreign body in stomach, subsequent encounter (principal)
CPT/HCPCS: 71046; 74018

== ENCOUNTER 2022-04-30 13:28 | Emergency (ER) | payer OTHER, SELFPAY ==
[2022-04-30 13:40] VITALS: BP 127/90; PULSE 90; RESP 20; TEMP 36.7; O2SAT 100
--- NOTE | 2022-04-30 14:05 | ED.SKABFB ---
HPI - Skin/Abscess/Foreign Bdy General Chief complaint: Skin/Abscess/Foreign Body Stated complaint: headaches rash throat scratchy Time Seen by Provider: 04/30/22 13:48 Source: patient and RN notes reviewed Mode of arrival: ambulatory Limitations: no limitations History of Present Illness HPI narrative: 36 year old female who presents to [facility] care with complaints of one small lesion to left upper arm 2 days ago and yesterday scattered red rash to right arm located at antecubital area which is itchy. Patient denies any new skin products or any new soaps or laundry detergent, no new foods, was on Amoxicillin when had dental extractions but states has had that before.Patient denies anyone else having rash at home which is similar. Patient states she got a steroid from her PCP but doesn't look any better thinks it is spreading. MD complaint: rash Onset (ago): day(s) (2) Location: LUE and RUE Severity scale (1-10): 3 Treatments prior to arrival: OTC topical medication, Benadryl and corticosteroid Related Data Home Medications Medication Instructions Recorded Confirmed lorazepam 1 mg tablet 1 mg PO BID PRN Anxiety 10/14/19 04/30/22 amoxicillin 500 mg tablet 500 mg PO TID 04/30/22 04/30/22 ibuprofen 600 mg tablet 600 mg PO Q6H PRN Pain 04/30/22 04/30/22 lamotrigine 150 mg tablet 150 mg PO DAILY 04/30/22 04/30/22 levonorgestrel 20 mcg/24 hours (7 1 device intrauterine ONCE 04/30/22 04/30/22 yrs) 52 mg intrauterine device (Mirena) rizatriptan 10 mg disintegrating 10 mg PO DAILY PRN Migraine 04/30/22 04/30/22 tablet Headache Allergies Allergy/AdvReac Type Severity Reaction Status Date / Time Sulfa (Sulfonamide Allergy Mild HIVES Verified 04/30/22 13:54 Antibiotics) Review of Systems Review of Systems: CONSTITUTIONAL: Denies fever, chills, or sweats. EYES: Denies visual changes, redness, or discharge. ENT: Denies rhinorrhea, congestion, sore throat, or otalgia. CARDIOVASCULAR: Denies chest pain, palpitations, or edema. RESPIRATORY: Denies cough or dyspnea. GASTROINTESTINAL: Denies abdominal pain, nausea, vomiting, or diarrhea. GENITOURINARY: Denies dysuria or hematuria. scant distribution no exudate or pustules SKIN: positive for rash or itching left upper arm one small lesion and right antecubital MUSCULOSKELETAL: Denies back pain, joint pain, or myalgia. NEUROLOGIC: Denies headache, numbness, or weakness. PSYCHIATRIC: Positive for anxiety or depression. All systems reviewed & are unremarkable except as noted in HPI and below PMFSH Past Medical History Medical History (Updated 05/01/22 @ 00:01 by Rocco Baca) ADHD Anxiety Borderline personality disorder Depression Surgical History Surgical History (Updated 05/04/22 @ 14:01 by Jana Turk NP) Previous section X3 S/P carpal tunnel release right [place] teeth extracted Social History Social History Smoking status: Current every day smoker Tobacco type: cigarettes Substance use: current Substance use type: marijuana Gender identity (if verbalized by the patient): Female Comments At time of signature, agree with nursing past medical, surgical, social and family history. There is no relevant family history pertinent to the presenting complaint Exam Narrative: GENERAL: Well-appearing, well-nourished, and in no acute distress. HEAD: Normocephalic, atraumatic. EYES: PERRLA and EOMI. ENT: Nares clear, no rhinorrhea or epistaxis. Mucous membranes moist.RM's normal with good light reflex, throat pink with no lesions or exudates dental incisions healing well NECK: Supple. CHEST: Clear to auscultation. No respiratory distress. HEART: Regular rate and rhythm. No murmur heard. Normal peripheral pulses. ABDOMEN: Soft, nontender, nondistended, normal active bowel sounds. EXTREMITIES: Normal range of motion. No edema. SKIN: Warm, dry, no rash. NEURO: No focal deficits. Alert and o
== END 2022-04-30 14:18 | disposition home or self-care (01) ==
PROVIDERS: Emergency Provider Registered Nurse; PCP Physician Assistant
DX: L25.9 Unspecified contact dermatitis, unspecified cause (principal); F90.9 Attention-deficit hyperactivity disorder, unspecified type; F41.8 Other specified anxiety disorders
CPT/HCPCS: 99213; G0463

== ENCOUNTER 2022-07-24 08:36 | Emergency (ER) | payer OTHER, SELFPAY ==
[2022-07-24 09:03] VITALS: BP 145/88; PULSE 101; RESP 18; TEMP 36.6; O2SAT 98
--- NOTE | 2022-07-24 09:41 | ED.URI ---
HPI - URI/Sore Throat General Chief Complaint: Upper Respiratory Infection Stated Complaint: sore throat aches headache Source: patient Mode of arrival: ambulatory Limitations: no limitations History of Present Illness HPI Narrative: 36-year-old female presents to [facility] with complaints of sore throat, body aches, chills, nasal congestion and right ear pain since last night. Patient reports that her children have been sick on and off the past 2 months. Patient is a smoker. Patient denies shortness of breath, wheezing, nausea, vomiting or diarrhea. MD elicited complaint: cough, rhinorrhea and nasal congestion Onset (ago): day(s) (1) Able to tolerate fluids by mouth: Yes Relieving factors: nothing Context: sick contacts Associated symptoms: ear pain Treatments prior to arrival: none Related Data Home Medications Medication Instructions Recorded Confirmed lorazepam 1 mg tablet 1 mg PO BID PRN Anxiety 10/14/19 07/24/22 lamotrigine 150 mg tablet 150 mg PO DAILY 04/30/22 07/24/22 levonorgestrel 20 mcg/24 hours (8 1 device intrauterine ONCE 04/30/22 07/24/22 yrs) 52 mg intrauterine device (Mirena) rizatriptan 10 mg disintegrating 10 mg PO DAILY PRN Migraine 04/30/22 07/24/22 tablet Headache Allergies Allergy/AdvReac Type Severity Reaction Status Date / Time Sulfa (Sulfonamide Allergy Mild HIVES Verified 07/24/22 09:31 Antibiotics) Review of Systems Constitutional: Constitutional: Reports chills, Denies fatigue, Denies fever(s) and Denies weakness ENT: Denies vertigo, Denies dizziness, Reports nasal congestion and Reports sore throat Comments: right ear pain Cardiovascular: Cardiovascular: Denies chest pain Respiratory: Respiratory: Denies cough, Denies dyspnea and Denies wheezing Gastrointestinal: Gastrointestinal: Denies diarrhea, Denies nausea and Denies vomiting Integumentary/Breasts: Skin/Breast: Denies rash Neurologic: Denies dizziness PMFSH Past Medical History Medical History ADHD Anxiety Borderline personality disorder Depression Surgical History Surgical History Previous section X3 S/P carpal tunnel release right [place] teeth extracted Social History Social History Smoking status: Current every day smoker Tobacco type: cigarettes Substance use: current Substance use type: marijuana Gender identity (if verbalized by the patient): Female Comments At time of signature, I agree with nursing past medical, surgical, social and family history. There is no relevant family history pertinent to the presenting complaint. Exam Const: General: healthy appearing Nutritional Appearance: well nourished Orientation/consciousness: patient oriented x3 Limitations: no limitations HENMT: Ears: external ears normal and TM abnormal wth effusion serous on the right and erythematous on the right Throat: posterior oropharynx normal and uvula midline Resp: Effort & Inspection: normal respiratory effort Auscultation: clear to auscultation bilaterally, no crackles, no rales and no rhonchi Cardio: Rate: regular rate Rhythm: regular rhythm Heart sounds: no murmurs Skin: General skin exam: normal color Rashes: no rashes Wounds: no wounds Neuro: General: patient oriented x3 Gait exam (Neuro): Normal gait present Psych: Affect: normal affect Attitude: cooperative Course Course Level of Care: Express Care Visit Vital Signs Vital signs: Vital Signs Temperature 36.6 C 07/24/22 09:03 Pulse Rate 101 H 07/24/22 09:03 Respiratory Rate 18 07/24/22 09:03 Blood Pressure 145/88 H 07/24/22 09:03 Pulse Oximetry 98 07/24/22 09:03 Oxygen Delivery Room Air 07/24/22 09:03 Temperature 36.6 C 07/24/22 09:03 Pulse Rate 101 H 07/24/22 09:03 Respiratory Rate 18 07/24/22 09:03 Blood
== END 2022-07-24 09:50 | disposition home or self-care (01) ==
PROVIDERS: Emergency Provider Nurse Practitioner Family; PCP Physician Assistant
DX: H66.91 Otitis media, unspecified, right ear (principal); F41.9 Anxiety disorder, unspecified; F17.210 Nicotine dependence, cigarettes, uncomplicated; F12.90 Cannabis use, unspecified, uncomplicated; F32.A Depression, unspecified
CPT/HCPCS: 87081; 87147; 87804; 87880; 99213; G0463

== ENCOUNTER 2022-07-25 05:02 | Emergency (ER) | payer OTHER, SELFPAY ==
[2022-07-25 05:06] VITALS: BP 133/86; PULSE 116; RESP 18; TEMP 36.6; O2SAT 100
--- NOTE | 2022-07-25 07:04 | PC.NURSE ---
Patient comes to desk, yelling I can't do this, I am leaving! Patient left ED before this RN could inform her of risks of leaving before being seen by a provider. Patient ambulated out of ED with a steady gait.
== END 2022-07-25 08:10 | disposition left against medical advice (07) ==
LOC: ANHED 08:09
PROVIDERS: PCP Physician Assistant
DX: J02.9 Acute pharyngitis, unspecified (principal)
CPT/HCPCS: 99199

== ENCOUNTER 2024-06-06 09:22 | Emergency (ER) | payer OTHER, SELFPAY ==
[2024-06-06 09:35] VITALS: BP 118/79; PULSE 86; RESP 20; TEMP 37.3; O2SAT 100
--- NOTE | 2024-06-06 09:46 | ED.GENADULT ---
HPI - General Adult General Chief complaint: Upper Respiratory Infection Stated complaint: congestion,sorethroat,cough Time Seen by Provider: 06/06/24 09:42 Source: patient, RN notes reviewed and old records reviewed Mode of arrival: ambulatory Limitations: no limitations History of Present Illness HPI narrative: 38-year-old female to Express Care with complaint nasal congestion, productive cough with green sputum, sore throat for 3 days. Patient complaint of headache that started yesterday. Patient smokes 1 pack per day. Patient history of migraines. Patient currently rating headache 10. Patient resting comfortably in exam room in no acute distress. Related Data Home Medications Medication Instructions Recorded Confirmed levonorgestrel 21 mcg/24 hr (up to 1 device intrauterine ONCE 04/30/22 06/06/24 8 years) 52 mg intrauterine device (Mirena) bupropion HCl 100 mg tablet,12 hr 100 mg PO BID 06/06/24 06/06/24 sustained-release lamotrigine 25 mg tablet 50 mg PO DAILY 06/06/24 06/06/24 oxybutynin chloride 5 mg 5 mg PO DAILY 06/06/24 06/06/24 tablet,extended release 24 hr Allergies Allergy/AdvReac Type Severity Reaction Status Date / Time amoxicillin Allergy Mild Hives Verified 06/06/24 09:55 Sulfa (Sulfonamide Allergy Mild HIVES Verified 06/06/24 09:57 Antibiotics) Review of Systems Review of Systems: All systems reviewed & are unremarkable except as noted in HPI and below Constitutional: Constitutional: Reports as per HPI and Reports headache(s) Eyes: Eyes: Reports no additional eye complaints ENT: Reports as per HPI, Reports nasal congestion and Reports sore throat Cardiovascular: Cardiovascular: Reports no additional cardiovascular complaints, Denies chest pain and Denies dyspnea Respiratory: Respiratory: Reports no additional respiratory complaints, Reports change in phlegm color ( Green), Reports cough and Denies dyspnea Musculoskeletal: Musculoskeletal: Reports no additional musculoskeletal complaints Neurologic: Reports system reviewed and no additional complaints, except as documented Psychiatric: Psychiatric: Reports no additional psychiatric complaints PMFSH Past Medical History Medical History ADHD Anxiety Borderline personality disorder Depression Surgical History Surgical History Previous section X3 S/P carpal tunnel release right [place] teeth extracted Social History Social History Smoking status: Current every day smoker Tobacco type: cigarettes Substance use: current Substance use type: marijuana Living arrangements: with family Gender identity (if verbalized by the patient): Female Comments At the time of my signature, I reviewed and agree with the nursing past medical, surgical, social, and family history. There is no relevant family history pertinent to the patient complaint. Exam Const: General: cooperative, no acute distress, alert, tired appearing, uncomfortable and well nourished Nutritional Appearance: well nourished Orientation/consciousness: patient oriented x3 Limitations: no limitations HENMT: Head: normal to inspection Ears: external ears normal, Abnormal EAC present EAC tenderness on the right and TM abnormal erythematous on the right, with fluid behind the TM on the right and with loss of landmarks on the right Face/Nose/Sinus: Normal external nose present, Normal nares present, normal facial exam, No erythema and No edema Face and sinus: normal facial exam, no erythema and no edema Mouth: Yes Normal oral and palatal mucosa present Throat: postnasal drainage Eyes: General: appearance normal, both eyes and all related structures Neck: Neck: normal visual inspection, full ROM and no meningeal signs Lymphatic: no lymphadenopathy noted and
[2024-06-06 10:03] LABS: EDSTREPNEGPOS1 Negative (Negative)
== END 2024-06-06 10:24 | disposition home or self-care (01) ==
PROVIDERS: Emergency Provider Nurse Practitioner Family; PCP Physician Assistant
DX: H66.91 Otitis media, unspecified, right ear (principal); F41.9 Anxiety disorder, unspecified; F32.A Depression, unspecified
CPT/HCPCS: 87081; 87880; 99213; G0463

== ENCOUNTER 2025-04-01 21:56 | Emergency (ER) | payer OTHER, SELFPAY ==
--- OUTSIDE RECORDS SUMMARY | 2025-04-01 21:59 | XMS_ITS | Clinical Summary ---
Author Organization [facility] Address [address] [place] [address] Care Team Providers Care Nursing Technician Name Role Phone Carlos White Primary Care Provider [phone] Source Comments [facility],non-owned Affiliates and Associated Physician Practices is amultiple site organization consisting of ambulatory clinics and hospital sitesin [place], [place], [place] and [place]. This disclosure is being madepursuant to the Care Everywhere program and may not contain all information available regarding this patient. Last updated 18.[facility] Allergies Active Allergy Reactions Criticality Noted Date Comments Sulfa Drugs Urticaria Medium 10/14/2010 Medications * Be aware that medications may not be up to date on this document. Alwaysverify current medications with the patient. LORazepam (ATIVAN) 1 MG tablet Take 0.5 mg by mouth once daily Active Vit-Fe Fumarate-FA ( VITAMIN) 28-0.8 MG tablet Take 1 tablet by mouth once daily Active HYDROXYprogeste radha caproate (ADDIS) 250 MG/ML injection Inject 250 mg into muscle every 7 days Active nicotine (NICODERM CQ) 14 MG/24HR patch Apply 1 patch to skin once daily 30 patch 9 Active Additional Information Patient not taking.Reported on 10/17/2018 oxyCODONE-aceta minophen (PERCOCET) 5-325 MG tablet Take 1-2 tablets by mouth every 4 hours as needed for Pain 20 tablet 9 Active ibuprofen (MOTRIN) 600 MG tablet Take 1 tablet by mouth every 6 hours as needed for Pain 60 tablet 2 9 Active docusate sodium (COLACE) 100 MG capsule Take 1 capsule by mouth 2 times daily 60 capsule 2 9 Active polyethylene glycol 3350 (MIRALAX) powder Take 17 g by mouth once daily 238 g 9 Active lanolin (LANOLIN) ointment Apply to affected area as needed (Sore or cracked nipples.) 7 g 1 9 Active Active Problems Problem Noted Date Diagnosed Date Encounter for scre ening for malformation using ultrasound 10/30/2018 Vaginal bleeding in 10/28/2018 echogenic bowel 10/17/2018 Overview (11/14/2018): Maternal Horizon CF carrier screen negative Cell free DNA aneuploidy screen [Keli] with NO result due to u ninformative DNA pattern . Patient not recommended for repeat blood sample drawn. Assessment & Plan (10/17/2018 12:33 PM INVESTMENT STRATEGIST): Plan Send cell free DNA aneuploidy screening along with maternal cystic fibrosis sequencing Poor growth affecting management of mother in third trimester 10/10/2018 Overview (11/14/2018): Prominent small bowel noted on 10/10/2018 Maternal Horizon CF carrier screen negative Assessment & Plan (10/17/2018 7:14 PM INVESTMENT STRATEGIST): Reduced amniotic fluid without absolute oligohydramnios. KASANDRA last week was 5.4 cm, today 4.2 cm. Plan: Maternal screening for potential exposure to cytomegalovirus and toxoplasma (IgG/IgM) Twice weekly biophysical profile Weekly Dopplers Assessment & Plan (10/10/2018 1:40 PM INVESTMENT STRATEGIST): Plan: Screening for CMV and toxoplasma (IgG/IgM) Aneuploidy and cystic fibrosis screening Weekly 10 point biophysical profile Daily kick counts Serial growth every 3 weeks Serial Doppler studies Follow-up re-evaluation of the small bowel at subsequent ultrasound encounters Delivery initiation at 39 weeks Placenta succenturiate lobe affecting fetus 09/28 Overview (10/10/2018): Posterior placenta with anterior accessory lobe. Unprotected vessels between the two placental masses. Assessment & Plan (10/10/2018 2:13 PM INVESTMENT STRATEGIST): Ensure complete removal of placenta at the time of delivery. Supervision of high-risk of young mandi garvin 07/13/2018 History of premature rupture of membranes in previous , currently 01/18/2012 Overview (10/17/2018): G3: SROM at 26w3d, delivered related to chorioamnionitis at 27w5d Assessment & Plan (10/17/2018 12:39 PM INVESTMENT STRATEGIST): Concern for recent rupture of membranes Plan Was sent to [facility] to exclude pre labor rupture of membranes Tobacco abuse 01/18/2012 Overview (10/10/2018): Recommend smoking cessation Assessment & Plan (10/17/2018 12:40 PM INVESTMENT STRATEGIST): Plan: Prescribing nicotine patch for assistance with complete smoking cessation Would benefit from Assessment & Plan (10/10/2018 1:38 PM INVESTMENT STRATEGIST): Recommend Gave a prescription for Nicorette gum History of section 01/18/2012 Overview (07/13/2018): G2 for NRFHT's G3 related to chorioamnionitis and repeat premature rupture of membranes Resolved Problems Problem Noted Date Diagnosed Date Resolved Date Encounter for screenin g for congenital cardiac abnormalities 09/21/2018 10/10/2018 History of delivery, currently in second trimester 07/16/2018 07/16/2018 History of delivery, currently 07/13/2018 07/18/2018 Supervision of high-risk 01/18/2012 07/13/2018 Overview (01/18/2012): Dating by undocumented 1st trimester US that is 1 day different from LMP Prenatals: need contractions 01/18/2012 018 Carpal tunnel syndrome 01/18/201207/18 Bronchitis 01/18/2012 07/18/2018 Overview (01/18/2012): On keflex and mucinex on admit Persistent headaches 01/18/2012 018 Immunizations Immunization Administration Dates Next Due INFLUENZA VACCINE, QUADR. (F LUZONE; FLULAVAL; FLUARIX; AFLURIA QUADRIVALENT; 6MO+), 0.5 ML (IIV4) 11/22/2018 PNEUMOCOCCAL PPSV23 01/30/2012 TDAP (7yrs+) 11/22/2018,01/30/2012 Family History Medical History Relation Name Comments Bipolar Disorder Father Diabetes Maternal Grandmother Heart Disease Maternal Grandmother Diabetes Mother Emphysema Paternal Grandmother Relation Name Status Comments Father Maternal Grandmother Mother Paternal Grandmother Social History Tobacco Use Types Packs/Day Years Used Date Smoking Tobacco: Every Day Cigarettes 0.5 10 Smokeless Tobacco: Never Tobacco Cessation:Ready to Q uit: No; Counseling Given: Yes Alcohol Use Standard Drinks/Week Comments No 0 (1 standard drink = 0.6 oz pur e alcohol) occasional Comments No Sex and Gender Information Value Date Recorded Sex Assigned at Not on file Legal Sex Female 6:04 AM INVESTMENT STRATEGIST Gender Identity Not on file Sexual Orientation Not on file Last Filed Vital Signs Vital Sign Reading Time Taken Comments Blood Pressure 124/85 11/24/2018 8:33 AM CDT Pulse 73 11/24/2018 8:33 AM CDT Temperature 37.1 C (98.7 F) 11/24/2018 8:33 AM CDT Respiratory Rate 24 11/24/2018 8:33 AM CDT Oxygen Saturation 98% 11/24/2018 8:33 AM CDT Inhaled Oxygen Concentration - - Weight 93.1 kg (205 lb 3.2 oz) 2018 5:30 P M CDT Height 170.2 cm (5' 7) 2018 5:23 PM CDT Body Mass Index 32.14 2018 5:23 PM CDT Plan of Treatment Health Maintenance Due Date Last Done Comments HIV SCREENING 2001 HEPATITIS C SCREENING 11/15/2004 HEPATITIS B VACCINE (1 of 3 - 19+ 3-dose series) 2005 HPV VACCINE (1 - 3-dose SCDM series) 2013 PAP with HPV 2016 COVID-19 VACCINE (1 - 2023-2 5 season) 2024 DEPRESSION SCREENING 08/28/2024 INFLUENZA VACCINE (#1) 2025 11/22/2018 DTAP/TDAP/TD VACCINES (3 - T d or Tdap) 11/22/2028 11/22/2018, 01/30/2012 ZOSTER VACCINE (1 of 2) 2036 PNEUMOCOCCAL VACCINE Aged Out 01/30/2012 No long er eligible based on patient's age to complete this topic HIB VACCINE Aged Out No longer eligi ble based on patient's age to complete this topic MENINGOCOCCAL (Group B) VACCINE SHARED DECISION-MAKING Aged Out No longer eligible based on patient's age to complete this topic MENINGOCOCCAL GROUPS A/C/Y/W VACCINE Aged Out No longer eligible b ased on patient's age to complete this topic Insurance [facility] Advance Directives * Full Code (Latest Code Status on File) Date Activated Date Inactivated Comments 2018 6:32 PM 11/24/2018 3:02 PM * FULL RESUSCITATION Date Activated Date Inactivated Comments 01/27/2012 1:05 AM 01/31/2012 5:51 AM * FULL RESUSCITATION Date Activated Date Inactivated Comments 01/18/2012 6:00 AM 01/27/2012 1:05 AM Care Teams Nursing Technician Relationship Specialty Start Date End Date Carlos White PA [address] [place] [address] PCP - General Physician Physician Assistant Surgery 11/10/16
--- OUTSIDE RECORDS SUMMARY | 2025-04-01 21:59 | XMS_ITS | Referral Summary ---
Author Organization [facility] Address [address] [place] [address] Care Team Providers Care Fence Installer Helper Name Role Phone Carlos White Primary Care Provider [phone] Zahida Cortez PT Unavailable Unavailable Encounters Date Type Department Care Team Description 01/03/2025 1:15 PM CDT Office Visit [facility] Orthopedics and Sports Medicine [address] [place] [address] Lazarus Epps NP Carpal tunnel syndrome on right (Primary Dx) from Last 3 Months Allergies Active Allergy Reactions Criticality Noted Date Comments Amoxicillin Other (See comments) Low 08/03/2022 Sulfa (Sulfonamide Antibiotics) Rash Reaction: Rash, , , , Reaction: rash, Medications prenat vit 43-xqzp-quing- om3,6 35-5-1.2-400 mg capsule Take 1 tablet by mouth daily. Active ondansetron (ZOFRAN) 4 mg tablet Take 1 tablet (4 mg total) by mouth every 6 (six) hours. 5 tablet 8 Active LORazepam (ATIVAN) 2 mg tablet Take 1 tablet (2 mg total) by mouth every 6 (six) hours as needed for anxiety Active ibuprofen (ADVIL,MOTRIN) 600 mg tablet Take 1 tablet (600 mg total) by mouth every 6 (six) hours as needed for pain 30 tablet 0 Active guaiFENesin-co deine (GUAITUSS AC) liquid 100-10 mg/5 mL Take 5-10 mL by mouth 4 (four) times a day as needed for cough or congestion Collaborating physician Jalil Gonzalez MD 120 mL 2 Active Additional Information Patient not taking.Reported on 08/05/2022 mupirocin (BACTROBAN) 2 % ointment Apply topically 3 (three) times a day Collaborating physician Jalil Gonzalez MD 22 g 1 2 Active Additional Information Patient not taking.Reported on 08/05/2022 predniSONE (DELTASONE) 20 mg tablet Take 20 mg by mouth 2 Active oseltamivir (TAMIFLU) 75 mg capsule Take 75 mg by mouth 2 (two) times a day 2 Active methylPREDNISo lone (MEDROL DOSEPACK) 4 mg Dosepack FOLLOW PACKAGE DIRECTIONS 2 Active HYDROcodone-ac etaminophen (NORCO) 5-325 mg per tablet Take 1 tablet by mouth every 4 (four) hours as needed 7 Active famotidine (PEPCID) 40 mg tabletIndicati ons:Laryngeal spasm Take 1 tablet (40 mg total) by mouth nightly 90 tablet 3 2 Active Active Problems Problem Noted Date Diagnosed Date Right wrist pain 11/26/2024 Acute streptococcal pharyngitis 08/05/2022 Assessment & Plan (08/05/2022 10:18 AM MANUFACTURING ENGINEER): Continue to increase fluids Continue Clindamycin three times daily Continue Prednisone Tylenol 500 mg and Ibuprofen 400 mg at the same time every 4-6 hours Start Pepcid 40 mg at bedtime Acute upper respiratory infection 08/05/2022 Assessment & Plan (08/05/2022 10:18 AM MANUFACTURING ENGINEER): Continue to increase fluids Continue Clindamycin three times daily Continue Prednisone Tylenol 500 mg and Ibuprofen 400 mg at the same time every 4-6 hours Start Pepcid 40 mg at bedtime Laryngeal spasm 08/05/2022 Assessment & Plan (08/05/2022 10:18 AM MANUFACTURING ENGINEER): Start Pepcid 40 mg at bedtime Angular cheilitis 09/11/2021 Impetigo 09/11/2021 Tobacco dependence syndrome 09/19/2012 Overview (12/02/2016): Tobacco abuse Migraine 10/05/2011 Overview (11/30/2016): Migraine Carpal tunnel syndrome 10/05/2011 Overview (12/02/2016): Carpal tunnel syndrome Social History Tobacco Use Types Packs/Day Years Used Date Smoking Tobacco: Every Day Cigarettes Smokeless Tobacco: Never Tobacco Cessation:Ready to Q uit: Not Asked; Counseling Given: Not Answered Alcohol Use Standard Drinks/Week Comments No 0 (1 standard drink = 0.6 oz pur e alcohol) AUDIT-C Answer Date Recorded Q1: How often do you have a drink containing alcohol? Never 01/03/2025 Q2: How many drinks containi ng alcohol do you have on a typical day when you are drinking? Patient does not drink Q3: How often do you have si x or more drinks on one occasion? Never 01/03/2025 Comments No Sex and Gender Information Value Date Recorded Sex Assigned at Not on file Legal Sex Female 12:28 AM MANUFACTURING ENGINEER Gender Identity Not on file Sexual Orientation Not on file Last Filed Vital Signs Vital Sign Reading Time Taken Comments Blood Pressure 126/75 01/03/2025 1:04 PM CDT Pulse 75 01/03/2025 1:04 PM CDT Temperature 36.7 C (98.1 F) 08/05/2022 9:33 AM MANUFACTURING ENGINEER Respiratory Rate 18 08/05/2022 9:33 AM MANUFACTURING ENGINEER Oxygen Saturation 98% 08/05/2022 9:33 AM MANUFACTURING ENGINEER Inhaled Oxygen Concentration - - Weight 94.3 kg (208 lb) 01/03/2025 1:04 PM CDT Height 175.3 cm (5' 9) 01/03/2025 1:04 PM CDT Body Mass Index 30.72 01/03/2025 1:04 PM CDT Plan of Treatment Not on file Procedures Procedure Name Priority Date/Time Associated Diagnosis Comments ND INJECTION THERAPEUTIC CARPAL TUNNEL Routine 01/03/2025 1:15 PM CDT Carpal tunnel syndrome on right THINPAP, REFLEX HPV ALL PTH Routine 10/16/2012 12:42 PM MANUFACTURING ENGINEER from Last 3 Months or Most Recently Relevant to Health Maintenance Results * ND INJECTION THERAPEUTIC CARPAL TUNNEL (01/03/2025 1:15 PM CDT) Narrative Lazarus Epps NP - 01/03/2025 1:15 PM CDT Lazarus Epps NP 01/03/2025 1:25 PM Carpal Tunnel Injection Performed by: Lazarus Epps NP Authorized by: Lazarus Epps NP Carpal Tunnel Injection: Consent Given by: Patient Timeout: prior to procedure the correct patient, procedure, and site was verified Verbal consent obtained?: Yes Supporting Documentation: Indications: Pain and numbness Procedure Details: Condition: carpal tunnel Site: R carpal tunnel Prep: patient was prepped using a clean technique Needle Size: 25 G Ultrasound guided: No Medications: 0.5 mL lidocaine 20 mg/mL (2 %); 40 mg methylPREDNISolone acetate 80 mg/mL Patient tolerance: Patient tolerated the procedure with difficulty Lazarus Epps NP IN CLINIC/BEDSIDE ORDERA BLES Final Result * ThinPrep Pap, Reflex HPV all pth (10/16/2012 12:42 PM MANUFACTURING ENGINEER) SOURCE: SEE NOTE [facility] HISTORICAL RESULTS Comment:Cervix, Endocervix CLINICAL INFORMATION: SEE NOTE [facility] HISTORICAL RESULTS Comment: Normal exam intrauterine contraceptive device LMP SEE NOTE [facility] HISTORICAL RESULTS Comment:10/14/12 Previous Pap SEE NOTE [facility] HISTORICAL RESULTS Comment:10/06/11 Prev. Bx SEE NOTE [facility] HISTORICAL RESULTS Comment:INFORMATION NOT PROV IDED Pap, specimen adequacy SEE NOTE [facility] HISTORICAL RESULTS Comment: Satisfactory for evaluation. Endocervical/transformation zone component present. HPV interp SEE NOTE [facility] HISTORICAL RESULTS Comment:Negative for intraep ithelial lesion or malignancy. Lactobacillus species SEE NOTE [facility] HISTORICAL RESULTS Comment: This Pap test has been evaluated with computer assisted technology. Based on the cytology result, reflex High Risk HPV DNA testing was not performed. Rehab Tech SEE NOTE [facility] HISTORICAL RESULTS Comment: MWK, CT(ASCP) Test performed at [facility] [address] [address] Director: CHRIS SIMS DO [facility] 10/16/2012 12:4 2 PM MANUFACTURING ENGINEER Annalise Olivera NP LAB PATHOLOGY ORDERABLES F inal Result [facility] HISTORICAL RESULTS from Last 3 Months or Most Recently Relevant to Health Maintenance Insurance [facility] Care Teams Fence Installer Helper Relationship Specialty Start Date End Date Carlos White PA [address] [place] [address] PCP - General 05/02/18 Zahida Cortez PT Physical Therapist Physical Therapy 01/18/22
--- OUTSIDE RECORDS SUMMARY | 2025-04-01 21:59 | XMS_ITS | Clinical Summary ---
Author Organization [facility] Address [address], [address] [address] Phone Care Team Providers Care Rack Pusher Name Role Phone Carlos White Primary Care Provider Rome Vann MD Unavailable [phone] Brianna Schafer APRN, EMPLOYMENT INSTRUCTIONAL ASSOCIATE Unavailable [phone] Adarsh Chacon MD Unavailable Adarsh Chacon MD Unavailable Allergies Active Allergy Reactions Criticality Noted Date Comments Amoxicillin Other (see Comments) 08/03/2022 Sulfa Antibiotics Hives High 03/07/2017 Medications escitalopram (LEXAPRO) 20 MG Tablet Take 20 mg by mouth daily. Active LORazepam (ATIVAN) 1 MG Tablet Take 1 mg by mouth 3 times daily as needed. Active HYDROcodone-talia taminophen (NORCO) 5-325 MG Tablet Take 1-2 Tabs by mouth every 4 hours as needed for Pain. 40 Tab 7 Active Additional Information Patient not taking.Reported on 05/16/2024 HYDROcodone-talia taminophen (NORCO) 5-325 MG TabletIndicatio ns:Peritonsilla r abscess Take 1 Tablet by mouth every 4 hours as needed for Moderate or more severe pain. 15 Tablet 2 Active Additional Information Patient not taking.Reported on 05/16/2024 predniSONE (DELTASONE) 20 MG Tablet Take 1 Tablet by mouth See Admin Instructions. 18 Tablet 2 Active Additional Information Patient not taking.Reported on 05/16/2024 buPROPion HCl (WELLBUTRIN PO) Take by mouth. Active lamoTRIgine (LAMICTAL PO) Take by mouth. A ctive oxybutynin (DITROPAN-XL) 5 MG TABLET SR 24 HR TAKE 1 TABLET BY MOUTH DAILY 30 Tablet 5 5 Active Active Problems Problem Noted Date Diagnosed Date Abdominal pain, left lower quadrant 03/07/2017 Immunizations Immunization Administration Dates Next Due Influenza Vaccine, Quadrivalent, PF 11/22/2018 Pneumococcal Vaccine Adult - 23 Valent 2 TDAP Vaccine 07/28/2021,11/22/2018,01/30/2012 Family History Medical History Relation Name Comments Bipolar Disorder Father Diabetes Maternal Grandmother Heart Disease Maternal Grandmother Arthritis Mother Diabetes Mother Emphysema Paternal Grandmother Lung Cancer Paternal Grandmother Relation Name Status Comments Father Alive Maternal Grandmother Mother Alive Paternal Grandmother Social History Tobacco Use Types Packs/Day Years Used Date Smoking Tobacco: Every Day Cigarettes 1 15 Tobacco Cessation:Ready to Q uit: Not Asked; Counseling Given: Not Answered Alcohol Use Standard Drinks/Week Comments No 0 (1 standard drink = 0.6 oz pur e alcohol) Sexually Active Control Partners Comments Not Currently Comments No Sex and Gender Information Value Date Recorded Sex Assigned at Not on file Legal Sex Female 7:43 PM CDT Gender Identity Not on file Sexual Orientation Not on file Last Filed Vital Signs Vital Sign Reading Time Taken Comments Blood Pressure 112/79 05/16/2024 9:45 AM CDT Pulse 87 05/16/2024 9:45 AM CDT Temperature 36.5 C (97.7 F) 08/03/2022 3:48 PM GOLF STUD RIVETER Respiratory Rate 16 05/16/2024 9:45 AM CDT Oxygen Saturation 98% 05/16/2024 9:45 AM CDT Inhaled Oxygen Concentration - - Weight 95.7 kg (211 lb) 05/16/2024 9:45 AM CDT Height 170.2 cm (5' 7) 05/16/2024 9:45 AM CDT Body Mass Index 33.05 05/16/2024 9:45 AM CDT Plan of Treatment Health Maintenance Due Date Last Done Comments Hepatitis C Virus (HCV) Screening 1986 Hepatitis B Immunization (1 of 3 - 19+ 3-dose series) 2005 Pap Smear 11/21/2007 Pneumococcal Immunization Combined (2 of 2 - PCV) 01/29/2013 01/30/2012 Human Papillomavirus (HPV) Immunization (1 - 3-dose SCDM series) 2013 Cervical Cancer Screening (CCS) 2016 HPV/Cotest 2016 SARS-COV-2 Immunization (1 - season) 2024 Influenza Immunization (#1) 2025 11/22/2018 Td Immunization Every 10 Yea rs (Adults With 1 Tdap) 07/28/2031 07/28/2021, 11/22/2018, 01/30/2012 Respiratory Syncytial Virus (RSV) Immunization (Adult) (1 - 1-dose 75+ series) 2061 DTaP/Tdap/Td Immunization Discontinued 2020, 11/22/2018, 01/30/2012 TdaP Immunization Discontinued 07/28/2021, 11/22/2018, 01/30/2012 Meningococcal Immunization (ACWY) Aged Out No longer eligible based on patient's age to complete this topic Rotavirus Immunization Aged Out No lo nger eligible based on patient's age to complete this topic Insurance MEDICAID [place] Care Teams Rack Pusher Relationship Specialty Start Date End Date Carlos White PAC [address] [place] [address] PCP - General Physician Yield Engineer 02/16/17 Rome Vann MD [address] [place] [id number] General Surgery 02/16/17 Brianna Schafer, FORMWORK CARPENTER, EMPLOYMENT INSTRUCTIONAL ASSOCIATE [address] [place] [address] [address] Family Medicine 03/29/17 Adarsh Chacon MD [address] [address] Consulting Physician Urology 05/16/24 Adarsh Chacon MD [address] [address] Consulting Physician Urology 05/17/24
--- OUTSIDE RECORDS SUMMARY | 2025-04-01 21:59 | XMS_ITS | Patient Health Record ---
Author Organization [facility] Address [address] [place] [address] Care Team Providers Care Ent Nurse Name Role Phone Myrtle Fitzpatrickkacy Primary Care Provider Allergies Allergen (clinical drug ingredient) Drug/Non Drug Allergy documented on EMR Reaction Allergy Type Onset Date Status penicillin (uncoded) rash Allergy Active Substance with sulfonamide structure and antibacterial mechanism of action (substance) sulfa (uncoded) childhood Allergy Active Reason For Referral No Information Medications Medication SIG (Take, Route, Fr equency, Duration) Notes Start Date End Date Status hydrOXYzine HCl 25 MG two tablets Orally every 4 hours prn Active Promethazine HCl 25 MG 1 tablet as neede d Orally every 6 hours prn nausea and vomiting Active Multivitamin - 1 tablet Orally Once a day Active Qulipta 60 MG 1 tablet Orally Once a day Active Wellbutrin XL 300 MG 1 tablet in the mor olya Orally Once a day Active Ubrelvy 50 MG 1 tablet may take se cond dose at least 2 hours after first dose as needed Orally Once a day Active lamoTRIgine 150 MG 1 tablet Orally Once a day Active LORazepam 1 MG 1 tablet prn anxiety Orally twice a day Active Social History Tobacco Use: Social History Observation Description Date Details (start date - stop date) Current Smoker NA - NA Dont use, Tobacco Use/Smoking Question Answer Notes Are you a current smoker Problems Problem Type SNOMED Code ICD Code Onset Dates Problem Status W/U Status Risk Notes Problem Tobacco use disorder (F17.200) Active confirmed Plan Of Treatment No Information Insurance Providers Payer Name Payer Address Payer Phone Subscriber Number Group Number Insured Name Patient Relationship to Insured Coverage Start Date Coverage End Date [address] [phone] [id number] Blake Meade Self - patient is the insured 3 Medical (General) History Surgical History Surgery Date(Month/Year) C section x3 Right hand carpal tunnel Hospitalization History Reason Date(Month/Year)
--- OUTSIDE RECORDS SUMMARY | 2025-04-01 21:59 | XMS_ITS | Encounter Summary ---
Author Organization [facility] Address [address] [place] [address] Phone Care Team Providers Care Forestry Foreman Name Role Phone Carlos White Primary Care Provider Rome Vann MD Unavailable [phone] Brianna Schafer APRN, LEAD NETWORK ARCHITECT Unavailable [phone] Adarsh Chacon MD Unavailable Adarsh Chacon MD Unavailable Encounter Details Date Type Department Care Team (Late st Contact Info) Description 08/26/2021 Transcribe Orders [facility] Patient Access Admitting [address] [place] [id number] Carlos White, PAC [address] [place] [address] Viral syndrome (Primary Dx) Social History Tobacco Use Types Packs/Day Years Used Date Smoking Tobacco: Every Day Cigarettes 1 15 Alcohol Use Standard Drinks/Week Comments No 0 (1 standard drink = 0.6 oz pur e alcohol) Comments No Sex and Gender Information Value Date Recorded Sex Assigned at Not on file Legal Sex Female 7:43 PM CDT Gender Identity Not on file Sexual Orientation Not on file documented as of this encounter Plan of Treatment Not on file documented as of this encounter Results * SARS-COV-2 BY MOLECULAR (08/26/2021 12:18 PM BOILERMAKER PIPE FITTER) SARSCOV2 NOT DETECTED (Referenc e Range for this test is Not Detected) [facility] ID NOW 08/26/2021 1:38 PM BOILERMAKER PIPE FITTER [facility] Comment:This test was perfor med by a MOLECULAR, NON-PCR method Other NASAL STRUCTURE / Unknown Non-Phlebotomy Collection / Unknown 08/26/2021 12:18 PM BOILERMAKER PIPE FITTER 08/26/2021 1:03 PM BOILERMAKER PIPE FITTER Narrative [facility] - 08/26/2021 1:38 PM BOILERMAKER PIPE FITTER This test has been authorized by the FDA under an Emergency Use Authorization (EUA) only. Negative results should be treated as presumptive and, if inconsistent with clinical signs and symptoms or necessary for patient management, the patient should be tested with an alternative molecular assay. Negative results do not preclude SARS-CoV-2 infection or any other respiratory pathogen. Additional information for Clinicians can be found at: https://www.fda.gov/media/088845/download Additional information for Patients can be found at: https://www.fda.gov/media/737191/download Carlos WILSON MICROBIOLOGY - GENERAL ORDERA BLES Final Result [facility] [place] [address] documented in this encounter Visit Diagnoses Diagnosis Viral syndrome- Primary Unspecified viral infection, in conditions classified elsewhere and of unspecified site documented in this encounter Additional Health Concerns Infection Onset Date Last Indicated Resolved Time COVID - 19 08/26/2021 08/26/2021 09/15/2021 12:1 6 AM BOILERMAKER PIPE FITTER documented as of this encounter Care Teams Forestry Foreman Relationship Specialty Start Date End Date Carlos White PAC [address] [place] [address] PCP - General Physician Label Tacker 02/16/17 Rome Vann MD [address] [place] [address] General Surgery 02/16/17 Brianna Schafer APRN, LEAD NETWORK ARCHITECT 2 [facility] [address] [place] [address] Family Medicine 03/29/17 Adarsh Chacon MD [address] [facility] [address] [place] [address] Consulting Physician Urology 05/16/24 Adarsh Chacon MD [address] [address] [place] [address] Consulting Physician Urology 05/17/24 documented as of this encounter
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
--- NOTE | 2025-04-01 22:58 | PC.NURSE ---
Patient approached triage desk stating that she was going to leave due to wait times. Pt advised to be seen at nearest ED for symptoms that warrant return.
--- OUTSIDE RECORDS SUMMARY | 2025-04-01 23:03 | XMS_ITS | Clinical Summary ---
Author Organization [facility] Address [address], [address] [address] Phone Care Team Providers Care Chute Loader Name Role Phone Carlos White Primary Care Provider [phone] Rome Vann MD Unavailable [phone] Brianna Schafer APRN, COMBINATION WORKER Unavailable [phone] Adarsh Chacon MD Unavailable Adarsh Chacon MD [...] 36.5 C (97.7 F) 08/03/2022 3:48 PM POWER SYSTEM ELECTRICAL ENGINEER Respiratory Rate 16 05/16/2024 9:45 AM CDT [...] this topic Insurance MEDICAID [place] Care Teams Chute Loader Relationship Specialty Start Date End Date Carlos White PAC [address] [place] [address] PCP - General Physician Small Animal Veterinarian 02/16/17 Rome Vann MD [address] [place] [address] General Surgery 02/16/17 Brianna Schafer, GUIDE RAIL CLEANER, COMBINATION WORKER [address] [place] [address] [address] Family Medicine 03/29/17 Adarsh Chacon MD [address] [address] Consulting Physician Urology 05/16/24 Adarsh Chacon MD [address] [address] Consulting Physician Urology 05/17/24
--- OUTSIDE RECORDS SUMMARY | 2025-04-01 23:03 | XMS_ITS | Encounter Summary ---
Author Organization [facility] Address [address] [place] [address] Phone Care Team Providers Care Rhinologist Name Role Phone Carlos White Primary Care Provider [phone] Rome Vann MD Unavailable [phone] Brianna Schafer APRN, INDEPENDENT JEWELER Unavailable [phone] Adarsh Chacon MD Unavailable Adarsh Chacon MD Unavailable Encounter Details Date Type Department Care Team (Late st Contact Info) Description 08/26/2021 Transcribe Orders [facility] Patient Access Admitting 1 [place] [id number] Carlos White, PAC [address] [place] [address] Viral syndrome (Primary Dx) Social History Tobacco [...] * SARS-COV-2 BY MOLECULAR (08/26/2021 12:18 PM ELECTRICAL AND INSTRUMENT MECHANIC) SARSCOV2 NOT DETECTED (Referenc e Range for this test is Not Detected) [facility] ID NOW 08/26/2021 1:38 PM ELECTRICAL AND INSTRUMENT MECHANIC [facility] Comment:This test was perfor med by a MOLECULAR, NON-PCR method Other NASAL STRUCTURE / Unknown Non-Phlebotomy Collection / Unknown 08/26/2021 12:18 PM ELECTRICAL AND INSTRUMENT MECHANIC 08/26/2021 1:03 PM ELECTRICAL AND INSTRUMENT MECHANIC Narrative [facility] - 08/26/2021 1:38 PM ELECTRICAL AND INSTRUMENT MECHANIC This test has been authorized by the [...] information for Clinicians can be found at: https://www.fda.gov/media/769180/download Additional information for Patients can be found at: https://www.fda.gov/media/874793/download Carlos WILSON MICROBIOLOGY - GENERAL ORDERA BLES Final Result [facility] [address] [place] [address] documented in this encounter Visit Diagnoses Diagnosis Viral syndrome- Primary Unspecified viral infection, in conditions classified elsewhere and of unspecified site documented in this encounter Additional Health Concerns Infection Onset Date Last Indicated Resolved Time COVID - 19 08/26/2021 08/26/2021 09/15/2021 12:1 6 AM ELECTRICAL AND INSTRUMENT MECHANIC documented as of this encounter Care Teams Rhinologist Relationship Specialty Start Date End Date Carlos White PAC [address] [place] [address] PCP - General Physician Rn Outpatient Surgery 02/16/17 Rome Vann MD [address] [place] [address] General Surgery 02/16/17 Brianna Schafer APRN, INDEPENDENT JEWELER 2 [facility] [address] [place] [address] Family Medicine 03/29/17 Adarsh Chacon MD #[address] [facility] [address] [place] [address] Consulting Physician Urology 05/16/24 Adarsh Chacon MD [address] [facility] [address] [place] [address] Consulting Physician Urology 05/17/24 documented as of this encounter
--- OUTSIDE RECORDS SUMMARY | 2025-04-01 23:03 | XMS_ITS | Referral Summary ---
Author Organization [facility] Address [address] [place] [address] Care Team Providers Care Hat Body Sorter Name Role Phone Carlos White Primary Care Provider [phone] Zhaida Cortez PT Unavailable Unavailable Encounters Date Type Department Care Team Description 01/03/2025 1:15 PM CDT Office Visit [facility] Orthopedics and Sports Medicine [address] [facility] [address] [place] [address] Lazarus Epps NP Carpal tunnel syndrome on right (Primary Dx) from Last 3 Months Allergies Active Allergy Reactions Criticality Noted Date Comments Amoxicillin Other (See comments) Low 08/03/2022 Sulfa (Sulfonamide Antibiotics) Rash Reaction: Rash, , , , Reaction: rash, Medications prenat vit 48-uolm-bbbkh- om3,6 35-5-1.2-400 mg capsule Take 1 tablet [...] 08/05/2022 Assessment & Plan (08/05/2022 10:18 AM ELEMENTARY SCHOOL SCIENCE TEACHER): Continue to increase fluids Continue Clindamycin three times daily Continue Prednisone Tylenol 500 mg and Ibuprofen 400 mg at the same time every 4-6 hours Start Pepcid 40 mg at bedtime Acute upper respiratory infection 08/05/2022 Assessment & Plan (08/05/2022 10:18 AM ELEMENTARY SCHOOL SCIENCE TEACHER): Continue to increase fluids Continue Clindamycin three times daily Continue Prednisone Tylenol 500 mg and Ibuprofen 400 mg at the same time every 4-6 hours Start Pepcid 40 mg at bedtime Laryngeal spasm 08/05/2022 Assessment & Plan (08/05/2022 10:18 AM ELEMENTARY SCHOOL SCIENCE TEACHER): Start Pepcid 40 mg at bedtime Angular [...] on file Legal Sex Female 12:28 AM ELEMENTARY SCHOOL SCIENCE TEACHER Gender Identity Not on file Sexual Orientation Not on file Last Filed Vital Signs Vital Sign Reading Time Taken Comments Blood Pressure 126/75 01/03/2025 1:04 PM CDT Pulse 75 01/03/2025 1:04 PM CDT Temperature 36.7 C (98.1 F) 08/05/2022 9:33 AM ELEMENTARY SCHOOL SCIENCE TEACHER Respiratory Rate 18 08/05/2022 9:33 AM ELEMENTARY SCHOOL SCIENCE TEACHER Oxygen Saturation 98% 08/05/2022 9:33 AM ELEMENTARY SCHOOL SCIENCE TEACHER Inhaled Oxygen Concentration - - Weight 94.3 kg (208 lb) 01/03/2025 1:04 PM CDT Height 175.3 cm (5' 9) 01/03/2025 1:04 PM CDT Body Mass Index 30.72 01/03/2025 1:04 PM CDT Plan of Treatment Not on file Procedures Procedure Name Priority Date/Time Associated Diagnosis Comments [place] INJECTION THERAPEUTIC CARPAL TUNNEL Routine 01/03/2025 1:15 PM CDT Carpal tunnel syndrome on right THINPAP, REFLEX HPV ALL PTH Routine 10/16/2012 12:42 PM ELEMENTARY SCHOOL SCIENCE TEACHER from Last 3 Months or Most Recently Relevant to Health Maintenance Results * IA INJECTION THERAPEUTIC CARPAL TUNNEL (01/03/2025 1:15 PM [...] Reflex HPV all pth (10/16/2012 12:42 PM ELEMENTARY SCHOOL SCIENCE TEACHER) SOURCE: SEE NOTE [facility] HISTORICAL RESULTS Comment:Cervix, [...] Risk HPV DNA testing was not performed. Personnel Representative SEE NOTE [facility] HISTORICAL RESULTS Comment: MWK, CT(ASCP) Test performed at [facility] [address] [address] Director: CHRIS SIMS DO [facility] 10/16/2012 12:4 2 PM ELEMENTARY SCHOOL SCIENCE TEACHER Annalise Olivera NP LAB PATHOLOGY ORDERABLES F inal Result [facility] HISTORICAL RESULTS from Last 3 Months or Most Recently Relevant to Health Maintenance Insurance [facility] Care Teams Hat Body Sorter Relationship Specialty Start Date End Date Carlos White PA [address] [place] [address] PCP - General 05/02/18 Zahida Cortez PT Physical Therapist Physical Therapy 01/18/22
--- OUTSIDE RECORDS SUMMARY | 2025-04-01 23:03 | XMS_ITS | Clinical Summary ---
Author Organization [facility] Address [address] [place] [address] Care Team Providers Care Equipment Operation Instructor Name Role Phone Carlos White Primary Care Provider [phone] Source Comments [facility],non-owned Affiliates and Associated Physician Practices is amultiple site organization consisting of ambulatory clinics and hospital sitesin [place], [place], [place] and [place]. This disclosure is being madepursuant to the Care Everywhere program and may not contain all information available regarding this patient. Last updated 18.[facility] [employer] Allergies Active Allergy Reactions Criticality Noted Date [...] drawn. Assessment & Plan (10/17/2018 12:33 PM MICROSOFT CRM DEVELOPER): Plan Send cell free DNA aneuploidy screening along with maternal cystic fibrosis sequencing Poor growth affecting management of mother in third trimester 10/10/2018 Overview (11/14/2018): Prominent small bowel noted on 10/10/2018 Maternal Horizon CF carrier screen negative Assessment & Plan (10/17/2018 7:14 PM MICROSOFT CRM DEVELOPER): Reduced amniotic fluid without absolute oligohydramnios. KASANDRA last week was 5.4 cm, today 4.2 cm. Plan: Maternal screening for potential exposure to cytomegalovirus and toxoplasma (IgG/IgM) Twice weekly biophysical profile Weekly Dopplers Assessment & Plan (10/10/2018 1:40 PM MICROSOFT CRM DEVELOPER): Plan: Screening for CMV and toxoplasma (IgG/IgM) [...] masses. Assessment & Plan (10/10/2018 2:13 PM MICROSOFT CRM DEVELOPER): Ensure complete removal of placenta at the time of delivery. Supervision of high-risk of young mandi garvin 07/13/2018 History of premature rupture of membranes in previous , currently 01/18/2012 Overview (10/17/2018): G3: SROM at 26w3d, delivered related to chorioamnionitis at 27w5d Assessment & Plan (10/17/2018 12:39 PM MICROSOFT CRM DEVELOPER): Concern for recent rupture of membranes Plan Was sent to [facility] Women's evaluation Unit to exclude pre labor rupture of membranes Tobacco abuse 01/18/2012 Overview (10/10/2018): Recommend smoking cessation Assessment & Plan (10/17/2018 12:40 PM MICROSOFT CRM DEVELOPER): Plan: Prescribing nicotine patch for assistance with complete smoking cessation Would benefit from Assessment & Plan (10/10/2018 1:38 PM MICROSOFT CRM DEVELOPER): Recommend Gave a prescription for Nicorette gum [...] on file Legal Sex Female 6:04 AM MICROSOFT CRM DEVELOPER Gender Identity Not on file Sexual Orientation [...] patient's age to complete this topic Insurance [facility] Advance Directives * Full Code (Latest Code Status on File) Date Activated Date Inactivated Comments 2018 6:32 PM 11/24/2018 3:02 PM * FULL RESUSCITATION Date Activated Date Inactivated Comments 01/27/2012 1:05 AM 01/31/2012 5:51 AM * FULL RESUSCITATION Date Activated Date Inactivated Comments 01/18/2012 6:00 AM 01/27/2012 1:05 AM Care Teams Equipment Operation Instructor Relationship Specialty Start Date End Date Carlos White PA [address] [place] [address] PCP - General Physician Oil Agent 11/10/16
--- OUTSIDE RECORDS SUMMARY | 2025-04-01 23:03 | XMS_ITS | Clinical Summary ---
Author Organization [facility] Address [address] [place] [address] Care Team Providers Care Optical Sales Associate Name Role Phone Carlos White Primary Care Provider [phone] Zahida Cortez PT Unavailable Unavailable Allergies Active Allergy Reactions Criticality Noted Date Comments Amoxicillin Other (See comments) Low 08/03/2022 Sulfa (Sulfonamide Antibiotics) Rash Reaction: Rash, , , , Reaction: rash, Medications prenat vit 30-ozbk-fegee- om3,6 35-5-1.2-400 mg capsule Take 1 tablet [...] 08/05/2022 Assessment & Plan (08/05/2022 10:18 AM INTERACTIVE DEVELOPER): Continue to increase fluids Continue Clindamycin three times daily Continue Prednisone Tylenol 500 mg and Ibuprofen 400 mg at the same time every 4-6 hours Start Pepcid 40 mg at bedtime Acute upper respiratory infection 08/05/2022 Assessment & Plan (08/05/2022 10:18 AM INTERACTIVE DEVELOPER): Continue to increase fluids Continue Clindamycin three times daily Continue Prednisone Tylenol 500 mg and Ibuprofen 400 mg at the same time every 4-6 hours Start Pepcid 40 mg at bedtime Laryngeal spasm 08/05/2022 Assessment & Plan (08/05/2022 10:18 AM INTERACTIVE DEVELOPER): Start Pepcid 40 mg at bedtime Angular cheilitis 09/11/2021 Impetigo 09/11/2021 Tobacco dependence syndrome 09/19/2012 Overview (12/02/2016): Tobacco abuse Migraine 10/05/2011 Overview (11/30/2016): Migraine Carpal tunnel syndrome 10/05/2011 Overview (12/02/2016): Carpal tunnel syndrome Encounters Date Type Department Care Team Description 01/03/2025 1:15 PM CDT Office Visit [facility] Orthopedics and Sports Medicine [address] [place] [address] [address] [address] Lazarus Epps NP Carpal tunnel [...] on file Legal Sex Female 12:28 AM INTERACTIVE DEVELOPER Gender Identity Not on file Sexual [...] 36.7 C (98.1 F) 08/05/2022 9:33 AM INTERACTIVE DEVELOPER Respiratory Rate 18 08/05/2022 9:33 AM INTERACTIVE DEVELOPER Oxygen Saturation 98% 08/05/2022 9:33 AM INTERACTIVE DEVELOPER Inhaled Oxygen Concentration - - Weight 94.3 [...] Procedure Name Priority Date/Time Associated Diagnosis Comments [place] INJECTION THERAPEUTIC CARPAL TUNNEL Routine 01/03/2025 1:15 PM CDT Carpal tunnel syndrome on right THINPAP, REFLEX HPV ALL PTH Routine 10/16/2012 12:42 PM INTERACTIVE DEVELOPER from Last 3 Months or Most Recently Relevant to Health Maintenance Results * [place] INJECTION THERAPEUTIC CARPAL TUNNEL (01/03/2025 1:15 PM [...] Reflex HPV all pth (10/16/2012 12:42 PM INTERACTIVE DEVELOPER) SOURCE: SEE NOTE [facility] HISTORICAL RESULTS Comment:Cervix, [...] Risk HPV DNA testing was not performed. Air Route Controller SEE NOTE [facility] HISTORICAL RESULTS Comment: MWK, CT(ASCP) Test performed at [facility] [address] [address] Director: CHRIS SIMS DO [facility] 10/16/2012 12:4 2 PM INTERACTIVE DEVELOPER Annalise Olivera NP LAB PATHOLOGY ORDERABLES F inal Result [facility] HISTORICAL RESULTS from Last 3 Months or Most Recently Relevant to Health Maintenance Insurance [facility] IDPA [facility] Care Teams Optical Sales Associate Relationship Specialty Start Date End Date Carlos White PA [address] [place] [address] PCP - General 05/02/18 Zahida Cortez PT Physical Therapist Physical Therapy 01/18/22
--- OUTSIDE RECORDS SUMMARY | 2025-04-01 23:03 | XMS_ITS | Patient Health Record ---
Author Organization [facility] Address [address] [place] [address] Care Team Providers Care Vice President Of Consulting Services Name Role Phone Myrtle Fitzpatrickkacy Primary Care [...] W/U Status Risk Notes Problem Tobacco use ([id number]) Tobacco use disorder (F17.200) Active confirmed Plan Of Treatment No Information Insurance Providers Payer Name Payer Address Payer Phone Subscriber Number Group Number Insured Name Patient Relationship to Insured Coverage Start Date Coverage End Date [facility] [address] [place] [address] [id number] Blake Meade Self - patient is the insured 3 Medical (General) History Surgical History Surgery Date(Month/Year) C section x3 Right hand carpal tunnel Hospitalization History Reason Date(Month/Year)
== END 2025-04-01 22:58 | disposition left against medical advice (07) ==
PROVIDERS: PCP Physician Assistant
DX: K08.89 Other specified disorders of teeth and supporting structures (principal)
CPT/HCPCS: 99199

== ENCOUNTER 2025-04-06 14:53 | Emergency (ER) | payer OTHER, SELFPAY ==
--- OUTSIDE RECORDS SUMMARY | 2025-04-06 14:56 | XMS_ITS | Clinical Summary ---
Author Organization [facility] Address [address], [address] [address] Phone Care Team Providers Care Buckle Gluer Name Role Phone Carlos White Primary Care Provider [phone] Rome Vann MD Unavailable Brianna Schafer APRN, LONG WALL MINING MACHINE HELPER Unavailable [phone] Adarsh Chacon MD Unavailable Adarsh Chacon MD [...] 36.5 C (97.7 F) 08/03/2022 3:48 PM WATER QUALITY TESTER Respiratory Rate 16 05/16/2024 9:45 AM CDT [...] this topic Insurance MEDICAID [place] Care Teams Buckle Gluer Relationship Specialty Start Date End Date Carlos White PAC [address] [place] [address] PCP - General Physician Certified Art Therapist 02/16/17 Rome Vann MD [address] [place] [address] General Surgery 02/16/17 Brianna Schafer, MIS DIRECTOR, LONG WALL MINING MACHINE HELPER [address] [place] [address] [address] Family Medicine 03/29/17 Adarsh Chacon MD [address] [address] Consulting Physician Urology 05/16/24 Adarsh Chacon MD [address] [address] Consulting Physician Urology 05/17/24
--- OUTSIDE RECORDS SUMMARY | 2025-04-06 14:56 | XMS_ITS | Encounter Summary ---
Author Organization [facility] Address [address] [place] [address] Phone Care Team Providers Care Head Lineman Name Role Phone Carlos White Primary Care Provider Rome Vann MD Unavailable [phone] Brianna Schafer APRN, MANAGER RESORT Unavailable [phone] Adarsh Chacon MD Unavailable Adarsh Chacon MD Unavailable Encounter Details Date Type Department Care Team (Late st Contact Info) Description 08/26/2021 Transcribe Orders [facility] Patient Access Admitting [address] [place] [id number] Carlos White, PAC [address] [place] [address] Viral syndrome (Primary Dx) Social History Tobacco [...] * SARS-COV-2 BY MOLECULAR (08/26/2021 12:18 PM CLIENT CARE SPECIALIST) SARSCOV2 NOT DETECTED (Referenc e Range for this test is Not Detected) [facility] GON[facility] ID NOW 08/26/2021 1:38 PM CLIENT CARE SPECIALIST [facility] Comment:This test was perfor med by a MOLECULAR, NON-PCR method Other NASAL STRUCTURE / Unknown Non-Phlebotomy Collection / Unknown 08/26/2021 12:18 PM CLIENT CARE SPECIALIST 08/26/2021 1:03 PM CLIENT CARE SPECIALIST Narrative [facility] - 08/26/2021 1:38 PM CLIENT CARE SPECIALIST This test has been authorized by the [...] information for Clinicians can be found at: https://www.fda.gov/media/572084/download Additional information for Patients can be found at: https://www.fda.gov/media/134929/download Carlos [facility] - GENERAL ORDERA BLES Final Result [facility] [address] [place] [address] documented in this encounter Visit Diagnoses Diagnosis Viral syndrome- Primary Unspecified viral infection, in conditions classified elsewhere and of unspecified site documented in this encounter Additional Health Concerns Infection Onset Date Last Indicated Resolved Time COVID - 19 08/26/2021 08/26/2021 09/15/2021 12:1 6 AM CLIENT CARE SPECIALIST documented as of this encounter Care Teams Head Lineman Relationship Specialty Start Date End Date Calros White PAC [address] [place] [address] PCP - General Physician Finance Professional 02/16/17 Rome Vann MD [address] [place] [address] General Surgery 02/16/17 Brianna Schafer APRN, MANAGER RESORT 2 [facility] [address] [place] [address] Family Medicine 03/29/17 Adarsh Chacon MD [address] [facility] [address] [place] [address] Consulting Physician Urology 05/16/24 Adarsh Chacon MD [address] [facility] [address] [place] [address] Consulting Physician Urology 05/17/24 documented as of this encounter
--- OUTSIDE RECORDS SUMMARY | 2025-04-06 14:56 | XMS_ITS | Clinical Summary ---
Author Organization [facility] Address [address] [place] [address] Care Team Providers Care Licensed Land Surveyor Name Role Phone Carlos White Primary Care Provider [phone] Zahida Cortez PT Unavailable Unavailable Allergies Active Allergy Reactions Criticality Noted Date Comments Amoxicillin Other (See comments) Low 08/03/2022 Sulfa (Sulfonamide Antibiotics) Rash Reaction: Rash, , , , Reaction: rash, Medications prenat vit 22-ybys-cdhgm- om3,6 35-5-1.2-400 mg capsule Take 1 tablet [...] 08/05/2022 Assessment & Plan (08/05/2022 10:18 AM BROKER ASSISTANT): Continue to increase fluids Continue Clindamycin three times daily Continue Prednisone Tylenol 500 mg and Ibuprofen 400 mg at the same time every 4-6 hours Start Pepcid 40 mg at bedtime Acute upper respiratory infection 08/05/2022 Assessment & Plan (08/05/2022 10:18 AM BROKER ASSISTANT): Continue to increase fluids Continue Clindamycin three times daily Continue Prednisone Tylenol 500 mg and Ibuprofen 400 mg at the same time every 4-6 hours Start Pepcid 40 mg at bedtime Laryngeal spasm 08/05/2022 Assessment & Plan (08/05/2022 10:18 AM BROKER ASSISTANT): Start Pepcid 40 mg at bedtime Angular cheilitis 09/11/2021 Impetigo 09/11/2021 Tobacco dependence syndrome 09/19/2012 Overview (12/02/2016): Tobacco abuse Migraine 10/05/2011 Overview (11/30/2016): Migraine Carpal tunnel syndrome 10/05/2011 Overview (12/02/2016): Carpal tunnel syndrome Surgical History Surgery Date Site/Laterality Comments SECTION [...] on file Legal Sex Female 12:28 AM BROKER ASSISTANT Gender Identity Not on file Sexual Orientation [...] 36.7 C (98.1 F) 08/05/2022 9:33 AM BROKER ASSISTANT Respiratory Rate 18 08/05/2022 9:33 AM BROKER ASSISTANT Oxygen Saturation 98% 08/05/2022 9:33 AM BROKER ASSISTANT Inhaled Oxygen Concentration - - Weight 94.3 [...] Procedure Name Priority Date/Time Associated Diagnosis Comments THINPAP, REFLEX HPV ALL PTH Routine 10/16/2012 12:42 PM BROKER ASSISTANT from Last 3 Months or Most Recently Relevant to Health Maintenance Results * ThinPrep Pap, Reflex HPV all pth (10/16/2012 12:42 PM BROKER ASSISTANT) SOURCE: SEE NOTE [facility] HISTORICAL RESULTS Comment:Cervix, [...] Risk HPV DNA testing was not performed. Field Artillery Operations Specialist SEE NOTE [facility] HISTORICAL RESULTS Comment: MWK, CT(ASCP) Test performed at [address] [address] Director: CHRIS SIMS DO [facility] 10/16/2012 12:4 2 PM BROKER ASSISTANT Annalise Olivera NP LAB PATHOLOGY ORDERABLES F inal Result [facility] HISTORICAL RESULTS from Last 3 Months or Most Recently Relevant to Health Maintenance Insurance [facility] [place] [address] [facility] Care Teams Licensed Land Surveyor Relationship Specialty Start Date End Date Carlos White PA [address] [place] [address] PCP - General 05/02/18 Zahida Cortez, PT Physical Therapist Physical Therapy 01/18/22
--- OUTSIDE RECORDS SUMMARY | 2025-04-06 14:56 | XMS_ITS | Clinical Summary ---
Author Organization [facility] [email or web address] Address [address] [place] [address] Care Team Providers Care Strainer Mill Operator Name Role Phone Carlos White Primary Care Provider [phone] Source Comments [facility] [email or web address],non-owned Affiliates and Associated Physician Practices is amultiple site organization consisting of ambulatory clinics and hospital sitesin [place], [place], [place] and [place]. This disclosure is being madepursuant to the Care Everywhere program and may not contain all information available regarding this patient. Last updated 18.[facility] [email or web address] Allergies Active Allergy Reactions Criticality Noted Date [...] drawn. Assessment & Plan (10/17/2018 12:33 PM GLOVE PRESSER): Plan Send cell free DNA aneuploidy screening along with maternal cystic fibrosis sequencing Poor growth affecting management of mother in third trimester 10/10/2018 Overview (11/14/2018): Prominent small bowel noted on 10/10/2018 Maternal Horizon CF carrier screen negative Assessment & Plan (10/17/2018 7:14 PM GLOVE PRESSER): Reduced amniotic fluid without absolute oligohydramnios. KASANDRA last week was 5.4 cm, today 4.2 cm. Plan: Maternal screening for potential exposure to cytomegalovirus and toxoplasma (IgG/IgM) Twice weekly biophysical profile Weekly Dopplers Assessment & Plan (10/10/2018 1:40 PM GLOVE PRESSER): Plan: Screening for CMV and toxoplasma (IgG/IgM) [...] masses. Assessment & Plan (10/10/2018 2:13 PM GLOVE PRESSER): Ensure complete removal of placenta at the time of delivery. Supervision of high-risk of young mandi garvin 07/13/2018 History of premature rupture of membranes in previous , currently 01/18/2012 Overview (10/17/2018): G3: SROM at 26w3d, delivered related to chorioamnionitis at 27w5d Assessment & Plan (10/17/2018 12:39 PM GLOVE PRESSER): Concern for recent rupture of membranes Plan Was sent to [facility] Women's evaluation Unit to exclude pre labor rupture of membranes Tobacco abuse 01/18/2012 Overview (10/10/2018): Recommend smoking cessation Assessment & Plan (10/17/2018 12:40 PM GLOVE PRESSER): Plan: Prescribing nicotine patch for assistance with complete smoking cessation Would benefit from Assessment & Plan (10/10/2018 1:38 PM GLOVE PRESSER): Recommend Gave a prescription for Nicorette gum [...] on file Legal Sex Female 6:04 AM GLOVE PRESSER Gender Identity Not on file Sexual Orientation [...] patient's age to complete this topic Insurance [facility] Advance Directives * Full Code (Latest Code Status on File) Date Activated Date Inactivated Comments 2018 6:32 PM 11/24/2018 3:02 PM * FULL RESUSCITATION Date Activated Date Inactivated Comments 01/27/2012 1:05 AM 01/31/2012 5:51 AM * FULL RESUSCITATION Date Activated Date Inactivated Comments 01/18/2012 6:00 AM 01/27/2012 1:05 AM Care Teams Strainer Mill Operator Relationship Specialty Start Date End Date Carlos White PA [address] [place] [address] PCP - General Physician Parcel Contractor 11/10/16
--- OUTSIDE RECORDS SUMMARY | 2025-04-06 14:56 | XMS_ITS | Patient Health Record ---
Author Organization [facility] Address [address] [place] [address] Care Team Providers Care Sewer Line Photo Inspector Name Role Phone Myrtle Fitzpatrickkacy Primary Care [...] Insured Coverage Start Date Coverage End Date [address] [address] [id number] Blake Meade Self - patient is the insured 3 Medical (General) History Surgical History Surgery Date(Month/Year) C section x3 Right hand carpal tunnel Hospitalization History Reason Date(Month/Year)
[2025-04-06 15:29] VITALS: BP 144/100; PULSE 106; RESP 20; TEMP 36.4; O2SAT 100
[2025-04-06 16:24] VITALS: BP 140/105; PULSE 84; RESP 18; TEMP 37.2; O2SAT 98
--- NOTE | 2025-04-06 16:37 | ED_ITS ---
HPI - Dental/Oral General Chief complaint: Dental/Oral Stated complaint: dental infection, not improved with antibiotics Time Seen by Provider: 04/06/25 16:22 History of Present Illness HPI Narrative: Patient is a 39-year-old female who presents ER with dental pain. Ongoing over last couple weeks. She has been on antibiotics for several days is concerned may be getting worse. No facial swelling or difficulty breathing or swelling. Symptoms worsened when she was in a hot shower. Occasionally radiates to her left ear. Waxes and wanes in intensity. Has tried bpdh-bpq-mzofrns medications. Related Data Home Medications ?Medication ?Instructions ?Recorded ?Confirmed ?Last Taken ?Type levonorgestrel (Mirena) 1 device intrauterine ONCE 04/30/22 06/06/24 Unknown History bupropion HCl 100 mg tablet,12 hr 100 mg PO BID 06/06/24 06/06/24 Unknown History sustained-release lamotrigine 25 mg tablet 50 mg PO DAILY 06/06/24 06/06/24 Unknown History oxybutynin chloride 5 mg 5 mg PO DAILY 06/06/24 06/06/24 Unknown History tablet,extended release 24 hr Allergies Allergy/AdvReac Type Severity Reaction Status Date / Time amoxicillin Allergy Mild Hives Verified 04/06/25 15:35 Sulfa (Sulfonamide Allergy Mild HIVES Verified 04/06/25 15:35 Antibiotics) Review of Systems Constitutional: Constitutional: Reports no additional constitutional complaints ENT: Reports system reviewed and no additional complaints, except as documented PMFSH Past Medical History Medical History ADHD Anxiety Borderline personality disorder Depression Surgical History Surgical History Previous section X3 S/P carpal tunnel release right [place] teeth extracted Social History Social History Smoking status: Current every day smoker Tobacco type: cigarettes Substance use: current Substance use type: marijuana Living arrangements: with family Gender identity (if verbalized by the patient): Female Exam Narrative: GENERAL: Well-appearing, well-nourished, and in no acute distress. HEAD: Normocephalic, atraumatic. ENT: Mucous membranes moist. Reports pain at tooth number 9. No abscess or fullness. No facial swelling. CHEST: Clear to auscultation. No respiratory distress. HEART: Regular rate and rhythm. Normal peripheral pulses. EXTREMITIES: Normal range of motion. No edema NEURO: Alert and oriented x3. PSYCH: Normal mood and affect. Course Course Emergency Course: Recommend continued therapy with home antibiotics, no evidence of failure, I will give some Tylenol with hydrocodone for pain control. Also recommend dental wax. Discharge. Vital Signs Vital signs: Vital Signs Temperature 97.6 F 04/06/25 15:29 Pulse Rate 106 H 04/06/25 15:29 Respiratory Rate 20 04/06/25 15:29 Blood Pressure 144/100 H 04/06/25 15:29 Pulse Oximetry 100 04/06/25 15:29 Oxygen Delivery Room Air 04/06/25 15:29 Temperature 98.9 F 04/06/25 16:24 Pulse Rate 84 04/06/25 16:24 Respiratory Rate 18 04/06/25 16:24 Blood Pressure 140/105 H 04/06/25 16:24 Pulse Oximetry 98 04/06/25 16:24 Oxygen Delivery Room Air 04/06/25 16:24 Discharge Plan Discharge Clinical Impression: Toothache Patient Disposition: Home Condition: Stable Instructions: Toothache (ED) Additional Instructions: Obtain some dental wax to see if this helps your discomfort. Continue home antibiotics. Follow-up with your dentist. Patient Language: Welsh Prescriptions: New hydrocodone-acetaminophen 5-325 mg tablet 1 tablet PO Q6H PRN (Reason: pain) Qty: 12 0RF No Action Mirena 20 mcg/24 hours (7 yrs) 52 mg Intrauterine Device 1 device INTRAUTERINE ONCE Rx Instructions: as a single dose lamotrigine 25 mg tablet 50 mg PO DAILY bupropion HCl 100 mg tablet sustained-release 12 hr 100 mg PO BID oxybutynin chloride 5 mg tablet extended release 24hr 5 mg PO DAILY azithromycin 250 mg tablet 250 mg PO DAILY Qty: 6 0RF Rx Instructions: 250 mg orally. Take TWO tablets today, then one tablet daily for 4 days. prednisone 20 mg tablet See Rx Instructions .ROUTE .COMPLEX Qty: 9 0RF Rx Instructions: Take 40mg x3 days, 20mg x3 days Follow-up/Referrals: Christopher,MARIELA Corley [Primary Care Provider] - 1 Week
[2025-04-06] MEDS: HYDROcodone/acetaminophen (*CRX) 5-325 MG TABLET 1 TAB PO (16:41)
--- OUTSIDE RECORDS SUMMARY | 2025-04-06 16:51 | XMS_ITS | Clinical Summary ---
Author Organization [facility] [employer] Address [address] [place] [address] Care Team Providers Care Medical Instrument Cable Fabricator Name Role Phone Carlos White Primary Care Provider [phone] Source Comments [facility] [employer],non-owned Affiliates and Associated Physician Practices is amultiple site organization consisting of ambulatory clinics and hospital sitesin [place], [place], [place] and [place]. This disclosure is being madepursuant to the Care Everywhere program and may not contain all information available regarding this patient. Last updated 18.[facility] [employer] Allergies Active Allergy Reactions Criticality Noted Date [...] drawn. Assessment & Plan (10/17/2018 12:33 PM PATROL SERGEANT SHERIFF'S OFFICE): Plan Send cell free DNA aneuploidy screening along with maternal cystic fibrosis sequencing Poor growth affecting management of mother in third trimester 10/10/2018 Overview (11/14/2018): Prominent small bowel noted on 10/10/2018 Maternal Horizon CF carrier screen negative Assessment & Plan (10/17/2018 7:14 PM PATROL SERGEANT SHERIFF'S OFFICE): Reduced amniotic fluid without absolute oligohydramnios. KASANDRA last week was 5.4 cm, today 4.2 cm. Plan: Maternal screening for potential exposure to cytomegalovirus and toxoplasma (IgG/IgM) Twice weekly biophysical profile Weekly Dopplers Assessment & Plan (10/10/2018 1:40 PM PATROL SERGEANT SHERIFF'S OFFICE): Plan: Screening for CMV and toxoplasma (IgG/IgM) [...] masses. Assessment & Plan (10/10/2018 2:13 PM PATROL SERGEANT SHERIFF'S OFFICE): Ensure complete removal of placenta at the time of delivery. Supervision of high-risk of young mandi garvin 07/13/2018 History of premature rupture of membranes in previous , currently 01/18/2012 Overview (10/17/2018): G3: SROM at 26w3d, delivered related to chorioamnionitis at 27w5d Assessment & Plan (10/17/2018 12:39 PM PATROL SERGEANT SHERIFF'S OFFICE): Concern for recent rupture of membranes Plan Was sent to [facility] Women's evaluation Unit to exclude pre labor rupture of membranes Tobacco abuse 01/18/2012 Overview (10/10/2018): Recommend smoking cessation Assessment & Plan (10/17/2018 12:40 PM PATROL SERGEANT SHERIFF'S OFFICE): Plan: Prescribing nicotine patch for assistance with complete smoking cessation Would benefit from Assessment & Plan (10/10/2018 1:38 PM PATROL SERGEANT SHERIFF'S OFFICE): Recommend Gave a prescription for Nicorette gum [...] on file Legal Sex Female 6:04 AM PATROL SERGEANT SHERIFF'S OFFICE Gender Identity Not on file Sexual Orientation [...] patient's age to complete this topic Insurance [facility] Advance Directives * Full Code (Latest Code Status on File) Date Activated Date Inactivated Comments 2018 6:32 PM 11/24/2018 3:02 PM * FULL RESUSCITATION Date Activated Date Inactivated Comments 01/27/2012 1:05 AM 01/31/2012 5:51 AM * FULL RESUSCITATION Date Activated Date Inactivated Comments 01/18/2012 6:00 AM 01/27/2012 1:05 AM Care Teams Medical Instrument Cable Fabricator Relationship Specialty Start Date End Date Carlos White PA [address] [place] [address] PCP - General Physician Padded Products Inspector Trimmer 11/10/16
--- OUTSIDE RECORDS SUMMARY | 2025-04-06 16:51 | XMS_ITS | Clinical Summary ---
Author Organization [facility] Address [address] [place] [address] Care Team Providers Care Training Development Director Name Role Phone Carlos White Primary Care Provider [phone] Zahida Cortez PT Unavailable Unavailable Allergies Active Allergy Reactions Criticality Noted Date Comments Amoxicillin Other (See comments) Low 08/03/2022 Sulfa (Sulfonamide Antibiotics) Rash Reaction: Rash, , , , Reaction: rash, Medications prenat vit 76-tqhi-zkcyp- om3,6 35-5-1.2-400 mg capsule Take 1 tablet [...] 08/05/2022 Assessment & Plan (08/05/2022 10:18 AM CARPET LOOM FIXER): Continue to increase fluids Continue Clindamycin three times daily Continue Prednisone Tylenol 500 mg and Ibuprofen 400 mg at the same time every 4-6 hours Start Pepcid 40 mg at bedtime Acute upper respiratory infection 08/05/2022 Assessment & Plan (08/05/2022 10:18 AM CARPET LOOM FIXER): Continue to increase fluids Continue Clindamycin three times daily Continue Prednisone Tylenol 500 mg and Ibuprofen 400 mg at the same time every 4-6 hours Start Pepcid 40 mg at bedtime Laryngeal spasm 08/05/2022 Assessment & Plan (08/05/2022 10:18 AM CARPET LOOM FIXER): Start Pepcid 40 mg at bedtime Angular [...] on file Legal Sex Female 12:28 AM CARPET LOOM FIXER Gender Identity Not on file Sexual Orientation [...] 36.7 C (98.1 F) 08/05/2022 9:33 AM CARPET LOOM FIXER Respiratory Rate 18 08/05/2022 9:33 AM CARPET LOOM FIXER Oxygen Saturation 98% 08/05/2022 9:33 AM CARPET LOOM FIXER Inhaled Oxygen Concentration - - Weight 94.3 [...] HPV ALL PTH Routine 10/16/2012 12:42 PM CARPET LOOM FIXER from Last 3 Months or Most Recently Relevant to Health Maintenance Results * ThinPrep Pap, Reflex HPV all pth (10/16/2012 12:42 PM CARPET LOOM FIXER) SOURCE: SEE NOTE [facility] HISTORICAL RESULTS Comment:Cervix, [...] Risk HPV DNA testing was not performed. Poolroom/Poolhall Manager SEE NOTE [facility] HISTORICAL RESULTS Comment: MWK, CT(ASCP) Test performed at [address] [address] Director: CHRIS SIMS DO [facility] 10/16/2012 12:4 2 PM CARPET LOOM FIXER Annalise Olivera NP LAB PATHOLOGY ORDERABLES F inal Result [facility] HISTORICAL RESULTS from Last 3 Months or Most Recently Relevant to Health Maintenance Insurance [facility] IDIA [facility] Care Teams Training Development Director Relationship Specialty Start Date End Date Carlos White PA [address] [place] [address] PCP - General 05/02/18 Zahida Cortez, PT Physical Therapist Physical Therapy 01/18/22
--- OUTSIDE RECORDS SUMMARY | 2025-04-06 16:51 | XMS_ITS | Clinical Summary ---
Author Organization [facility] Address [address], [address] [address] Phone Care Team Providers Care Armored Machine Operator Name Role Phone Carlos White Primary Care Provider [phone] Rome Vann MD Unavailable [phone] Brianna Schafer APRN, HOSPITAL CLEANER Unavailable [phone] Adarsh Chacon MD Unavailable Adarsh Chacon MD [...] 36.5 C (97.7 F) 08/03/2022 3:48 PM LAUNDRY MANAGER Respiratory Rate 16 05/16/2024 9:45 AM CDT [...] this topic Insurance MEDICAID [place] Care Teams Armored Machine Operator Relationship Specialty Start Date End Date Carlos White PAC [address] [place] [address] PCP - General Physician Rpg Programmer Analyst 02/16/17 Rome Vann MD [address] [place] [address] General Surgery 02/16/17 Brianna Schafer, PLANNING LEAD, HOSPITAL CLEANER [address] [place] [address] [address] Family Medicine 03/29/17 Adarsh Chacon MD [address] [address] Consulting Physician Urology 05/16/24 Adarsh Chacon MD [address] [address] Consulting Physician Urology 05/17/24
--- OUTSIDE RECORDS SUMMARY | 2025-04-06 16:51 | XMS_ITS | Encounter Summary ---
Author Organization [facility] Address [address] [place] [address] Phone Care Team Providers Care Software Sales Name Role Phone Carlos White Primary Care Provider Rome Vann MD Unavailable [phone] Brianna Schafer APRN, VETERINARIAN EPIDEMIOLOGIST Unavailable [phone] Adarsh Chacon MD Unavailable Adarsh Chacon MD Unavailable Encounter Details Date Type Department Care Team (Late st Contact Info) Description 08/26/2021 Transcribe Orders [facility] Patient Access Admitting 1 [place] [id number] Carlos White, PAC [address] [place] [address] Viral syndrome (Primary Dx) Social History Tobacco [...] * SARS-COV-2 BY MOLECULAR (08/26/2021 12:18 PM CUSTOMER ACQUISITION SPECIALIST) SARSCOV2 NOT DETECTED (Referenc e Range for this test is Not Detected) [facility] GONCALVES ID NOW 08/26/2021 1:38 PM CUSTOMER ACQUISITION SPECIALIST [facility] Comment:This test was perfor med by a MOLECULAR, NON-PCR method Other NASAL STRUCTURE / Unknown Non-Phlebotomy Collection / Unknown 08/26/2021 12:18 PM CUSTOMER ACQUISITION SPECIALIST 08/26/2021 1:03 PM CUSTOMER ACQUISITION SPECIALIST Narrative [facility] - 08/26/2021 1:38 PM CUSTOMER ACQUISITION SPECIALIST This test has been authorized by [...] information for Clinicians can be found at: https://www.fda.gov/media/290000/download Additional information for Patients can be found at: https://www.fda.gov/media/647516/download Carlos WILSON MICROBIOLOGY - GENERAL ORDERA BLES Final Result [facility] [address] [place] [address] documented in this encounter Visit Diagnoses Diagnosis Viral syndrome- Primary Unspecified viral infection, in conditions classified elsewhere and of unspecified site documented in this encounter Additional Health Concerns Infection Onset Date Last Indicated Resolved Time COVID - 19 08/26/2021 08/26/2021 09/15/2021 12:1 6 AM CUSTOMER ACQUISITION SPECIALIST documented as of this encounter Care Teams Software Sales Relationship Specialty Start Date End Date Carlos White PAC [address] [place] [address] PCP - General Physician Armed Security Officer 02/16/17 Rome Vann MD [address] [place] [address] General Surgery 02/16/17 Brianna Schafer APRN, VETERINARIAN EPIDEMIOLOGIST 2 [facility] [address] [place] [address] Family Medicine 03/29/17 Adarsh Chacon MD [address] [facility] [address] [place] [address] Consulting Physician Urology 05/16/24 Adarsh Chacon MD [address] [facility] [address] [place] [address] Consulting Physician Urology 05/17/24 documented as of this encounter
[2025-04-06 17:04] VITALS: BP 137/83; PULSE 75; RESP 18; TEMP 37.2; O2SAT 99
== END 2025-04-06 17:00 | disposition home or self-care (01) ==
LOC: ANHED 16:49
PROVIDERS: Emergency Provider Emergency Medicine; PCP Physician Assistant
DX: K08.89 Other specified disorders of teeth and supporting structures (principal); F90.9 Attention-deficit hyperactivity disorder, unspecified type; F60.3 Borderline personality disorder; F32.A Depression, unspecified; F41.9 Anxiety disorder, unspecified; F17.210 Nicotine dependence, cigarettes, uncomplicated; Z97.5 Presence of (intrauterine) contraceptive device; Z79.899 Other long term (current) drug therapy
CPT/HCPCS: 99283; A9270

== ENCOUNTER 2025-05-25 08:42 | Emergency (ER) | payer OTHER, SELFPAY ==
--- OUTSIDE RECORDS SUMMARY | 2025-05-25 08:44 | XMS_ITS | Clinical Summary ---
Author Organization [facility] Address [address] [place] [address] Care Team Providers Care Strip Tank Tender Name Role Phone Carlos White Primary Care Provider [phone] Source Comments [facility],non-owned Affiliates and Associated Physician Practices is amultiple site organization consisting of ambulatory clinics and hospital sitesin [place], [place], [place] and [place]. This disclosure is being madepursuant to the Care Everywhere program and may not contain all information available regarding this patient. Last updated 18.[facility] Allergies Active Allergy Reactions Criticality Noted Date [...] drawn. Assessment & Plan (10/17/2018 12:33 PM DIAMOND GRINDER): Plan Send cell free DNA aneuploidy screening along with maternal cystic fibrosis sequencing Poor growth affecting management of mother in third trimester 10/10/2018 Overview (11/14/2018): Prominent small bowel noted on 10/10/2018 Maternal Horizon CF carrier screen negative Assessment & Plan (10/17/2018 7:14 PM DIAMOND GRINDER): Reduced amniotic fluid without absolute oligohydramnios. KASANDRA last week was 5.4 cm, today 4.2 cm. Plan: Maternal screening for potential exposure to cytomegalovirus and toxoplasma (IgG/IgM) Twice weekly biophysical profile Weekly Dopplers Assessment & Plan (10/10/2018 1:40 PM DIAMOND GRINDER): Plan: Screening for CMV and toxoplasma (IgG/IgM) [...] masses. Assessment & Plan (10/10/2018 2:13 PM DIAMOND GRINDER): Ensure complete removal of placenta at the time of delivery. Supervision of high-risk of young mandi garvin 07/13/2018 History of premature rupture of membranes in previous , currently 01/18/2012 Overview (10/17/2018): G3: SROM at 26w3d, delivered related to chorioamnionitis at 27w5d Assessment & Plan (10/17/2018 12:39 PM DIAMOND GRINDER): Concern for recent rupture of membranes Plan Was sent to Women's evaluation Unit to exclude pre labor rupture of membranes Tobacco abuse 01/18/2012 Overview (10/10/2018): Recommend smoking cessation Assessment & Plan (10/17/2018 12:40 PM DIAMOND GRINDER): Plan: Prescribing nicotine patch for assistance with complete smoking cessation Would benefit from Assessment & Plan (10/10/2018 1:38 PM DIAMOND GRINDER): Recommend Gave a prescription for Nicorette gum [...] on file Legal Sex Female 6:04 AM DIAMOND GRINDER Gender Identity Not on file Sexual Orientation [...] SCDM series) 2013 PAP with HPV 2016 DEPRESSION SCREENING 08/28/2024 COVID-19 VACCINE (1 - 2023-2 5 season) 2025 INFLUENZA VACCINE (#1) 2025 11/22/2018 DTAP/TDAP/TD VACCINES [...] patient's age to complete this topic Insurance [facility] Advance Directives * Full Code (Latest Code Status on File) Date Activated Date Inactivated Comments 2018 6:32 PM 11/24/2018 3:02 PM * FULL RESUSCITATION Date Activated Date Inactivated Comments 01/27/2012 1:05 AM 01/31/2012 5:51 AM * FULL RESUSCITATION Date Activated Date Inactivated Comments 01/18/2012 6:00 AM 01/27/2012 1:05 AM Care Teams Strip Tank Tender Relationship Specialty Start Date End Date Carlos White PA [address] [place] [address] PCP - General Physician Lean Six Sigma Black Belt 11/10/16
[2025-05-25 08:45] VITALS: BP 137/89; PULSE 78; RESP 20; TEMP 36.8; O2SAT 100
--- OUTSIDE RECORDS SUMMARY | 2025-05-25 08:45 | XMS_ITS | Patient Health Record ---
Author Organization [facility] Address [address] [place] [address] Care Team Providers Care Film Examiner Name Role Phone Myrtle Fitzpatrickkacy Primary Care [...] W/U Status Risk Notes Problem Tobacco use ([id number]) Tobacco use disorder (F17.200) Active confirmed Plan Of Treatment No Information Insurance Providers Payer Name Payer Address Payer Phone Subscriber Number Group Number Insured Name Patient Relationship to Insured Coverage Start Date Coverage End Date [facility] [address] [place] [phone] [id number] Blake Meade Self - patient is the insured 3 Medical (General) History Surgical History Surgery Date(Month/Year) C section x3 Right hand carpal tunnel Hospitalization History Reason Date(Month/Year)
--- OUTSIDE RECORDS SUMMARY | 2025-05-25 08:45 | XMS_ITS | Clinical Summary ---
Author Organization [facility] Address [address] [place] [address] Care Team Providers Care Centrifuge Operator Name Role Phone Carlos White Primary Care Provider [phone] Zahida Cortez PT Unavailable Unavailable Allergies Active Allergy Reactions Criticality Noted Date Comments Amoxicillin Other (See comments) Low 08/03/2022 Sulfa (Sulfonamide Antibiotics) Rash Reaction: Rash, , , , Reaction: rash, Medications prenat vit 65-aqxx-nzleg- om3,6 35-5-1.2-400 mg capsule Take 1 tablet [...] 08/05/2022 Assessment & Plan (08/05/2022 10:18 AM TURN DOWN MAN): Continue to increase fluids Continue Clindamycin three times daily Continue Prednisone Tylenol 500 mg and Ibuprofen 400 mg at the same time every 4-6 hours Start Pepcid 40 mg at bedtime Acute upper respiratory infection 08/05/2022 Assessment & Plan (08/05/2022 10:18 AM TURN DOWN MAN): Continue to increase fluids Continue Clindamycin three times daily Continue Prednisone Tylenol 500 mg and Ibuprofen 400 mg at the same time every 4-6 hours Start Pepcid 40 mg at bedtime Laryngeal spasm 08/05/2022 Assessment & Plan (08/05/2022 10:18 AM TURN DOWN MAN): Start Pepcid 40 mg at bedtime Angular [...] on file Legal Sex Female 12:28 AM TURN DOWN MAN Gender Identity Not on file Sexual Orientation [...] 36.7 C (98.1 F) 08/05/2022 9:33 AM TURN DOWN MAN Respiratory Rate 18 08/05/2022 9:33 AM TURN DOWN MAN Oxygen Saturation 98% 08/05/2022 9:33 AM TURN DOWN MAN Inhaled Oxygen Concentration - - Weight 94.3 [...] HPV ALL PTH Routine 10/16/2012 12:42 PM TURN DOWN MAN from Last 3 Months or Most Recently Relevant to Health Maintenance Results * ThinPrep Pap, Reflex HPV all pth (10/16/2012 12:42 PM TURN DOWN MAN) SOURCE: SEE NOTE [facility] HISTORICAL RESULTS Comment:Cervix, [...] Risk HPV DNA testing was not performed. Electrician Rectifier Maintenance SEE NOTE [facility] HISTORICAL RESULTS Comment: MWK, CT(ASCP) Test performed at [address] [address] Director: CHRIS SIMS DO [facility] 10/16/2012 12:4 2 PM TURN DOWN MAN Annalise Olivera NP LAB PATHOLOGY ORDERABLES F inal Result [facility] HISTORICAL RESULTS from Last 3 Months or Most Recently Relevant to Health Maintenance Insurance [facility] Care Teams Centrifuge Operator Relationship Specialty Start Date End Date Carlos White PA [address] [place] [address] PCP - General 05/02/18 Zahida Cortez, PT Physical Therapist Physical Therapy 01/18/22
--- OUTSIDE RECORDS SUMMARY | 2025-05-25 08:45 | XMS_ITS | Clinical Summary ---
Author Organization [facility] Address [address], [address] [address] Phone Care Team Providers Care Sunglass Clip Attacher Name Role Phone Carols White Primary Care Provider [phone] Rome Vann MD Unavailable [phone] Brianna Schafer APRN, DIRECTOR OF PHILANTHROPY Unavailable [phone] Adarsh Chacon MD Unavailable Adarsh Chacon MD [...] 36.5 C (97.7 F) 08/03/2022 3:48 PM SHIPFITTER APPRENTICE Respiratory Rate 16 05/16/2024 9:45 AM CDT [...] Cervical Cancer Screening (CCS) 2016 HPV/Cotest 2016 Influenza Immunization (#1) 2025 11/22/2018 SARS-COV-2 Immunization ( - season) 2025 Td Immunization Every 10 Yea rs (Adults [...] this topic Insurance MEDICAID [place] Care Teams Sunglass Clip Attacher Relationship Specialty Start Date End Date Carlos White PAC [address] [place] [address] PCP - General Physician Sample Box Maker 02/16/17 Rome Vann MD [address] [place] [address] General Surgery 02/16/17 Brianna Schafer, BLENDING KETTLE TENDER, DIRECTOR OF PHILANTHROPY [address] [place] [address] [address] Family Medicine 03/29/17 Adarsh Chacon MD [address] [address] Consulting Physician Urology 05/16/24 Adarsh Chacon MD [address] [address] Consulting Physician Urology 05/17/24
--- OUTSIDE RECORDS SUMMARY | 2025-05-25 08:45 | XMS_ITS | Encounter Summary ---
Author Organization [facility] Address [address] [place] [address] Phone Care Team Providers Care Nitriles Lab Technician Name Role Phone Carlos White Primary Care Provider Rome Vann MD Unavailable [phone] Brianna Schafer APRN, CASH SPECIALIST Unavailable [phone] Adarsh Chacon MD Unavailable Adarsh Chacon MD Unavailable Encounter Details Date Type Department Care Team (Late st Contact Info) Description 08/26/2021 Transcribe Orders [facility] Patient Access Admitting [address] [place] [id number] Carlos White, PAC [address] [place] [address] Viral syndrome (Primary Dx) Social History Tobacco [...] * SARS-COV-2 BY MOLECULAR (08/26/2021 12:18 PM VENEER LATHE OPERATOR) SARSCOV2 NOT DETECTED (Referenc e Range for this test is Not Detected) [facility] GONCALVES ID NOW 08/26/2021 1:38 PM VENEER LATHE OPERATOR [facility] Comment:This test was perfor med by a MOLECULAR, NON-PCR method Other NASAL STRUCTURE / Unknown Non-Phlebotomy Collection / Unknown 08/26/2021 12:18 PM VENEER LATHE OPERATOR 08/26/2021 1:03 PM VENEER LATHE OPERATOR Narrative [facility] - 08/26/2021 1:38 PM VENEER LATHE OPERATOR This test has been authorized by the [...] information for Clinicians can be found at: https://www.fda.gov/media/745134/download Additional information for Patients can be found at: https://www.fda.gov/media/297656/download Carlos WILSON MICROBIOLOGY - GENERAL ORDERA BLES Final Result [facility] [address] [place] [address] documented in this encounter Visit Diagnoses Diagnosis Viral syndrome- Primary Unspecified viral infection, in conditions classified elsewhere and of unspecified site documented in this encounter Additional Health Concerns Infection Onset Date Last Indicated Resolved Time COVID - 19 08/26/2021 08/26/2021 09/15/2021 12:1 6 AM VENEER LATHE OPERATOR documented as of this encounter Care Teams Nitriles Lab Technician Relationship Specialty Start Date End Date Carlos White PAC [address] [place] [address] PCP - General Physician Sewing Machine Maintenance Mechanic 02/16/17 Rome Vann MD [address] [place] [address] General Surgery 02/16/17 Brianna Schafer APRN, CASH SPECIALIST 2 [facility] [address] [place] [address] Family Medicine 03/29/17 Adarsh Chacon MD [address] [facility] [address] [place] [address] Consulting Physician Urology 05/16/24 Adarsh Chacon MD [address] [facility] [address] [place] [address] Consulting Physician Urology 05/17/24 documented as of this encounter
[2025-05-25 08:51] VITALS: RESP 20; O2SAT 100
[2025-05-25] MEDS: SODIUM CHLORIDE 0.9% IV 1,000 ML 999 ML IV CONT (09:50)
[2025-05-25] MEDS: ONDANSETRON INJ 4 MG/2 ML VIAL IV PUSH (09:50)
[2025-05-25] MEDS: KETOROLAC 30 MG/ML VIAL (*BKC) IV PUSH (09:51)
[2025-05-25 10:29] LABS: Influenza A QL RT-PCR Negative (Negative); Influenza B QL RT-PCR Negative (Negative); RSV RNA, RT-PCR Negative (Negative); SARS-CoV-2 RNA PCR Negative (Negative)
[2025-05-25 11:30] VITALS: BP 112/78; PULSE 69; RESP 20; O2SAT 100
--- NOTE | 2025-05-25 12:00 | ED.GENADULT ---
HPI - General Adult General Chief complaint: Recheck/Abnormal Lab/Rx Stated complaint: elevated BP, [place] Time Seen by Provider: 05/25/25 08:45 History of Present Illness HPI narrative: Patient is a 39-year-old female who presents ER with headache. Throbbing. Worsening for last few days. History migraine. Associated with nausea. Has also been feeling her ear pop and gets occasional motion sickness. No chest pain or chest pressure. Has been feeling some mild congestion as well. No fevers or chills. Related Data Home Medications ?Medication ?Instructions ?Recorded ?Confirmed ?Last Taken ?Type levonorgestrel (Mirena) 1 device intrauterine ONCE 04/30/22 06/06/24 Unknown History bupropion HCl 100 mg tablet,12 hr 100 mg PO BID 06/06/24 06/06/24 Unknown History sustained-release lamotrigine 25 mg tablet 50 mg PO DAILY 06/06/24 06/06/24 Unknown History oxybutynin chloride 5 mg 5 mg PO DAILY 06/06/24 06/06/24 Unknown History tablet,extended release 24 hr Allergies Allergy/AdvReac Type Severity Reaction Status Date / Time amoxicillin Allergy Mild Hives Verified 05/25/25 08:50 Sulfa (Sulfonamide Allergy Mild HIVES Verified 05/25/25 08:50 Antibiotics) Review of Systems Review of Systems: All systems reviewed & are unremarkable except as noted in HPI and below Constitutional: Constitutional: Reports no additional constitutional complaints ENT: Reports system reviewed and no additional complaints, except as documented Cardiovascular: Cardiovascular: Reports no additional cardiovascular complaints Respiratory: Respiratory: Reports no additional respiratory complaints PMFSH Past Medical History Medical History ADHD Anxiety Borderline personality disorder Depression Surgical History Surgical History Previous section X3 S/P carpal tunnel release right [place] teeth extracted Social History Social History Smoking status: Current every day smoker Tobacco type: cigarettes Substance use: current Substance use type: marijuana Living arrangements: with family Gender identity (if verbalized by the patient): Female Exam Narrative: GENERAL: Well-appearing, well-nourished, and in no acute distress. HEAD: Normocephalic, atraumatic. ENT: Mucous membranes moist. TMs normal bilaterally. CHEST: Clear to auscultation. No respiratory distress. HEART: Regular rate and rhythm. Normal peripheral pulses. ABDOMEN: Soft, nontender, nondistended. EXTREMITIES: Normal range of motion. No edema. SKIN: Warm, dry, no rash. NEURO: Alert and oriented x3. PSYCH: Normal mood and affect. Course Course Emergency Course: Headache improved with Toradol/Zofran/fluids. Viral panel negative. Discharge. Vital Signs Vital signs: Vital Signs Temperature 98.3 F 05/25/25 08:45 Pulse Rate 78 05/25/25 08:45 Respiratory Rate 20 05/25/25 08:45 Blood Pressure 137/89 05/25/25 08:45 Pulse Oximetry 100 05/25/25 08:45 Oxygen Delivery Room Air 05/25/25 08:45 Temperature 98.3 F 05/25/25 08:45 Pulse Rate 78 05/25/25 08:45 Respiratory Rate 20 05/25/25 08:51 Blood Pressure 137/89 05/25/25 08:45 Pulse Oximetry 100 05/25/25 08:51 Oxygen Delivery Room Air 05/25/25 08:45 Medical Decision Making Vital Signs Vital Signs: Vital Signs Temperature 98.3 F 05/25/25 08:45 Pulse Rate 78 05/25/25 08:45 Respiratory Rate 20 05/25/25 08:45 Blood Pressure 137/89 05/25/25 08:45 Pulse Oximetry 100 05/25/25 08:45 Oxygen Delivery Room Air 05/25/25 08:45 Temperature 98.3 F 05/25/25 08:45 Pulse Rate 78 05/25/25 08:45 Respiratory Rate 20 05/25/25 08:51 Blood Pressure 137/89 05/25/25 08:45 Pulse Oximetry 100 05/25/25 08:51 Oxygen Delivery Room Air 05/25/25 08:45 Lab Data Labs: Lab Results 05/25/25 Range/Units 09:48 Influenza A (RT-PCR) Negative (Negative) Influenza B (RT-PCR) Negative (Negative) RSV (RT-PCR) Negative (Negative) SARS-CoV-2 RNA (RT-PCR) Negative (Negative) Discharge Plan Discharge Clinical Impression: Headache Patient Disposition: Home Condition: Stable Instructions: General Headache (ED) Additional Instructions: Try to stay well hydrated at home. Please return to the emergency department if you develop worsening of your headache or a new headache which is severe, associated with vision changes, associated with neck stiffness or fever, or if it is different from any other headache that you have had before. Return to the emergency department if you develop numbness, weakness or tingling or problems with coordination, or if you develop severe nausea and vomiting and are unable to keep down fluids at home. Take Tylenol or ibuprofen as needed for pain. Patient Language: Stateless Prescriptions: No Action Mirena 20 mcg/24 hours (7 yrs) 52 mg Intrauterine Device 1 device INTRAUTERINE ONCE Rx Instructions: as a single dose lamotrigine 25 mg tablet 50 mg PO DAILY bupropion HCl 100 mg tablet sustained-release 12 hr 100 mg PO BID oxybutynin chloride 5 mg tablet extended release 24hr 5 mg PO DAILY azithromycin 250 mg tablet 250 mg PO DAILY Qty: 6 0RF Rx Instructions: 250 mg orally. Take TWO tablets today, then one tablet daily for 4 days. prednisone 20 mg tablet See Rx Instructions .ROUTE .COMPLEX Qty: 9 0RF Rx Instructions: Take 40mg x3 days, 20mg x3 days hydrocodone-acetaminophen 5-325 mg tablet 1 tablet PO Q6H PRN (Reason: pain) Qty: 12 0RF Follow-up/Referrals: Christopher,MARIELA Corley [Primary Care Provider] - 1 Week
[2025-05-25 12:12] VITALS: BP 110/76; PULSE 79; RESP 20; O2SAT 100
== END 2025-05-25 12:14 | disposition home or self-care (01) ==
PROVIDERS: Emergency Provider Emergency Medicine; PCP Physician Assistant
DX: R51.9 Headache, unspecified (principal); Z20.822 Contact with and (suspected) exposure to COVID-19; F17.210 Nicotine dependence, cigarettes, uncomplicated; F41.9 Anxiety disorder, unspecified; F90.9 Attention-deficit hyperactivity disorder, unspecified type; F32.A Depression, unspecified
CPT/HCPCS: 87637; 96361; 96374; 96375; 99284; J1885; J2405; J7030